=== PATIENT | male | born 1975 | race African-American/Black ===

== ENCOUNTER 2017-04-13 13:43 | Emergency (ER) | payer SELFPAY ==
[~2017-04-13] VITALS: Ht 195.6 cm; Wt 77.1 kg
[~2017-04-13 13:43] MED LIST: HYDR50TA PO; PERM60CR12 TP; PRED50TA PO; SULF1TAB24 PO
[2017-04-13 13:52] VITALS: BP 145/96
[2017-04-13] MEDS ORDERED: DOXY100C2 PO (14:28)
--- NOTE | 2017-04-13 14:28 | PHYS DOC ---
Past Medical History Past Medical History: No Pertinent History Past Surgical History: No Surgical History Additional Past Surgical Histo: LEFT KNEE REPAIR Alcohol Use: Heavy Drug Use: Marijuana Adult General Chief Complaint Chief Complaint: INSECT BITE HPI HPI Patient is a 41 year old male presents to the stating that he has a bite to the right forearm. Patient states that the areas become red and started streaking. He has not taken anything for the pain or discomfort nor is he been started on any antibiotics. Denies any drainage coming from the site. He states his tetanus immunization is approximately 1 year ago. Review of Systems Review of Systems Constitutional: Denies fever or chills [] Eyes: Denies change in visual acuity, redness, or eye pain [] HENT: Denies nasal congestion or sore throat [] Respiratory: Denies cough or shortness of breath [] Cardiovascular: No additional information not addressed in HPI [] GI: Denies abdominal pain, nausea, vomiting, bloody stools or diarrhea [] : Denies dysuria or hematuria [] Musculoskeletal: Denies back pain or joint pain [] Integument: Denies rash or skin lesions. Complaint of right forearm bite with streaking Neurologic: Denies headache, focal weakness or sensory changes [] Endocrine: Denies polyuria or polydipsia [] Allergies Allergies Allergies Coded Allergies Type Severity Reaction Last Updated Verified No Known Drug Allergies 07/09/14 No Physical Exam Physical Exam Constitutional: Well developed, well nourished, no acute distress, non-toxic appearance. [] HENT: Normocephalic, atraumatic, bilateral external ears normal, oropharynx moist, no oral exudates, nose normal. [] Eyes: PERRLA, EOMI, conjunctiva normal, no discharge. [] Neck: Normal range of motion, no tenderness, supple, no stridor. [] Cardiovascular:Heart rate regular rhythm, no murmur [] Lungs & Thorax: Bilateral breath sounds clear to auscultation [] Skin: Warm, dry, no erythema, no rash. Patient was noted to have multiple scabbed over areas on his arms bilaterally. As well as on the back of his neck. Many of these scabbed over areas appear to be over pains. Patient has an area today in which is over another vein that appears to be red swollen and streaking up the arm. No drainage or discharge coming from the site. Back: No tenderness] Extremities: No tenderness, no cyanosis, no clubbing, ROM intact, no edema. [] Neurologic: Alert and oriented X 3, normal motor function, normal sensory function, no focal deficits noted. [] Psychologic: Affect normal, judgement normal, mood normal. [] Current Patient Data Vital Signs Vital Signs Date Time Temp Pulse Resp B/P (MAP) Pulse Ox O2 Delivery O2 Flow Rate FiO2 04/13/17 13:52 98.3 93 20 100 Room Air 98.3 EKG EKG [] Radiology/Procedures Radiology/Procedures [] Course & Med Decision Making Course & Med Decision Making Pertinent Labs and Imaging studies reviewed. (See chart for details) Spoke with patient regards to keeping the area clean and dry. Clean the site with soap and water and apply antibiotic ointment to the area twice a day. Also recommended ice packs on 20 minutes off 20 minutes several times a day. He'll be placed on doxycycline with recommendations to follow-up in 3-5 days. Signs and symptoms to return back to emergency department as been provided. Patient will be discharged home in stable condition. [] Dragon Disclaimer Dragon Disclaimer This electronic medical record was generated, in whole or in part, using a voice recognition dictation system. Departure Departure Impression: Primary Impression: Cellulitis Disposition: 01 HOME, SELF-CARE Condition: STABLE Referrals: NO PCP (PCP) Patient Instructions: Cellulitis, [id number] Additional Instructions: Keep the area clean and dry. Clean the site with soap and water and apply antibiotic ointment to the area twice a day. Antibiotics as prescribed. Follow-up to primary care physician next 3-5 days. Return back to emergency prior signs symptoms of become worse. Scripts Doxycycline Hyclate (DOXYCYCLINE HYCLATE) 100 Mg Capsule 1 CAP PO BID, #20 CAP Prov: MICHELE LOVE APRN 04/13/17 MICHELE LOVE BUILDING WRECKER Apr 13, 2017 14:28
== END 2017-04-13 14:35 | disposition home or self-care (01) ==
LOC: ER 13:43
DX: L03.113 Cellulitis of right upper limb (principal); F12.10 Cannabis abuse, uncomplicated; F10.10 Alcohol abuse, uncomplicated; W57.XXXA Bitten or stung by nonvenomous insect and other nonvenomous arthropods, initial encounter; Y93.89 Activity, other specified; Y99.8 Other external cause status; Y92.89 Other specified places as the place of occurrence of the external cause
CPT/HCPCS: 99283

== ENCOUNTER 2017-04-20 13:37 | Inpatient (IN) | payer SELFPAY ==
[~2017-04-20] VITALS: Ht 195.6 cm; Wt 81.2 kg
[~2017-04-20 13:37] MED LIST changes: +DOXY100C2 PO
[2017-04-20] MEDS ORDERED: IV NORMAL SALINE 1000ML BAG 1,000 ML IV SCH (14:11)
[2017-04-20] MEDS ORDERED: ACETAMINOPHEN 325 MG TABLET. PO ONE (14:15)
[2017-04-20] MEDS ORDERED: 0.9 % SODIUM CHLORIDE 10 ML DISP.SYRIN. IV PRN (14:15)
--- NOTE | 2017-04-20 14:18 | PHYS DOC ---
Past Medical History Past Medical History: No Pertinent History Past Surgical History: No Surgical History Additional Past Surgical Histo: LEFT KNEE REPAIR Smoking: Cigarettes Alcohol Use: Heavy Drug Use: Marijuana Adult General Chief Complaint Chief Complaint: ABSCESS HPI HPI Is is a pleasant 41-year-old male with a his history and evaluation for cellulitis on his forearms bilaterally. He says that this began about a week and half ago with bug bites on his upper extremities he's had multiple issues with localized infections on his shoulders chest wall lesions for months. He says just recently they have become increasingly swollen and red and inflamed. He was seen here one week ago and placed on Bactrim for suspected cellulitis of his upper right forearm. Since that time he has developed another lesion on the left side of his neck 2 days ago that is gotten progressively worse to the point where it causes him pain to turn his head to the right and left. He has a mild headache, he also complains of low-grade fever to 1012. He's had difficulty swallowing secondary to pain with swallowing. Although he denies a change in his voice. He denies any nasal discharge or discharge from the ears. He denies any other symptoms. He is living at home with his sister. Denies exposure to IV drugs, denies exposure to amphetamines. Patient denies any history of MRSA or prior abscess formation. Pain is moderate a 7 of 10 but is tender to 10 with range of motion of the neck. He does take his medications as prescribed. In his symptoms have gotten worse. He has no primary care doctor Review of Systems Review of Systems Constitutional: Renae fevers and chills measured to 1012 Eyes: Denies change in visual acuity, redness, or eye pain [] HENT: Denies nasal congestion or sore throat [] Respiratory: Denies cough or shortness of breath [] Cardiovascular: No additional information not addressed in HPI [] GI: Denies abdominal pain, nausea, vomiting, bloody stools or diarrhea [] : Denies dysuria or hematuria [] Musculoskeletal: Denies back pain or joint pain [] Integument: Has complete a multiple skin lesions on his upper extremities and chest wall. Neurologic: One with slight headache radiating from his neck. Endocrine: Denies polyuria or polydipsia [] Current Medications Current Medications Current Medications Medications (Trade) Dose Ordered Sig/Colleen Start Time Stop Time Status Last Admin Dose Admin Acetaminophen (Tylenol) 650 mg 1X ONCE 04/20/17 14:15 04/20/17 14:16 DC 04/20/17 14:46 650 MG Fentanyl Citrate (Fentanyl 2ml Vial) 50 mcg PRN Q15MIN PRN 04/20/17 14:15 04/21/17 14:14 04/20/17 15:43 50 MCG Sodium Chloride (Normal Saline Flush) 10 ml QSHIFT PRN 04/20/17 14:15 04/20/17 14:52 10 ML Vancomycin HCl 250 ml @ 250 mls/hr 1X ONCE 04/20/17 15:45 04/20/17 16:44 Allergies Allergies Allergies Coded Allergies Type Severity Reaction Last Updated Verified No Known Drug Allergies 07/09/14 No Physical Exam Physical Exam Patient noted to be febrile fever 101.5 with mild hypertension which is long- standing likely no hypoxia noted tachypnea noted tachycardia. Constitutional: this patient is thin and cachectic with multiple lesions noted on his upper extremities in various forms of healing. Most of them are open or weeping. HENT: Normocephalic, atraumatic, bilateral external ears normal, mucous membranes with very poor dentition erosion of enamel down to the dentin., no oral exudates, nose normal. [] Eyes: PERRLA, EOMI, conjunctiva are muddy, no discharge. [] Neck: Decreased range of motion with secondary soft tissue swelling to the lateral aspect of the sternal mastoid. It is warm to touch with mild erythema there is red streaking 3-4 cm destruction from a central point of soft tissue swelling. There is no obvious changes voice. He does have decreased range of motion secondary to pain there is no obvious abscess. Cardiovascular:Heart rate regular rhythm, no murmur [] Lungs & Thorax: Bilateral breath sounds clear to auscultation [] Skin: She has multiple small lesions measuring from half a centimeter 2 cm in size in various states of healing is upper extremity is the look like self- inflicted scabs that have been picked. There is common cellulitis in multiple areas. Extremities: No tenderness, no cyanosis, no clubbing, ROM intact, no edema. She has brisk capillary refill brisk peripheral pulses. +2 Neurologic: Alert and oriented X 3, normal motor function, normal sensory function, no focal deficits noted. [] Psychologic: Affect normal, judgement normal, mood normal. [] Current Patient Data Vital Signs Vital Signs Date Time Temp Pulse Resp B/P (MAP) Pulse Ox O2 Delivery O2 Flow Rate FiO2 04/20/17 15:43 Room Air 04/20/17 14:08 101.5 78 19 148/94 (112) 98 101.5 Lab Values Laboratory Tests Test 04/20/17 14:30 White Blood Count 10.3 x10^3/uL (4.0-11.0) Red Blood Count 3.76 x10^6/uL (4.30-5.70) L Hemoglobin 12.8 g/dL (13.0-17.5) L Hematocrit 37.8 % (39.0-53.0) L Mean Corpuscular Volume 101 fL (79-100) H Mean Corpuscular Hemoglobin 34 pg (25-35) Mean Corpuscular Hemoglobin Concent 34 g/dL (31-37) Red Cell Distribution Width 12.5 % (11.5-14.5) Platelet Count 221 x10^3/uL (140-400) Neutrophils (%) (Auto) 76 % (31-73) H Lymphocytes (%) (Auto) 7 % (24-48) L Monocytes (%) (Auto) 16 % (0-9) H Eosinophils (%) (Auto) 0 % (0-3) Basophils (%) (Auto) 0 % (0-3) Neutrophils # (Auto) 7.8 x10^3uL (1.8-7.7) H Lymphocytes # (Auto) 0.7 x10^3/uL (1.0-4.8) L Monocytes # (Auto) 1.7 x10^3/uL (0.0-1.1) H Eosinophils # (Auto) 0.0 x10^3/uL (0.0-0.7) Basophils # (Auto) 0.0 x10^3/uL (0.0-0.2) Sodium Level 135 mmol/L (136-145) L Potassium Level 4.0 mmol/L (3.5-5.1) Chloride Level 95 mmol/L (98-107) L Carbon Dioxide Level 30 mmol/L (21-32) Anion Gap 10 (6-14) Blood Urea Nitrogen 8 mg/dL (8-26) Creatinine 0.9 mg/dL (0.7-1.3) Estimated GFR (Cockcroft-Gault) 112.0 BUN/Creatinine Ratio 9 (6-20) Glucose Level 124 mg/dL (70-99) H Lactic Acid Level 1.0 mmol/L (0.4-2.0) Calcium Level 8.8 mg/dL (8.5-10.1) Magnesium Level 1.8 mg/dL (1.8-2.4) Total Bilirubin 0.4 mg/dL (0.2-1.0) Direct Bilirubin 0.2 mg/dL (0.0-0.2) Aspartate Amino Transferase (AST) 35 U/L (15-37) Alanine Aminotransferase (ALT) 26 U/L (16-63) Alkaline Phosphatase 196 U/L (46-116) H Ammonia 14 mcmol/L (11-34) Total Protein 9.0 g/dL (6.4-8.2) H Albumin 3.5 g/dL (3.4-5.0) Albumin/Globulin Ratio 0.6 (1.0-1.7) L Ethyl Alcohol Level < 10 mg/dL (0-10) Laboratory Tests 04/20/17 14:30 Laboratory Tests 04/20/17 14:30 EKG EKG [] EKG read by Dr. Nelson time is now 2:21 PM 2016 demonstrates normal sinus rhythm with a heart rate of 77 patient has some T-wave inversions in V1 nonspecific T-wave inversions in non specific elevation in V2. Radiology/Procedures Radiology/Procedures [] Course & Med Decision Making Course & Med Decision Making Pertinent Labs and Imaging studies reviewed. (See chart for details) This patient presents with abscess or suspected cellulitis to the left neck or the on antibiotics. He still having fevers and chills he will require IV and about here in the emergency department and admission to the hospital given the location of the anatomical structures like possibly affected by it. Patient is refilled outpatient management being on Bactrim for 7 days without improvement. This time patient is still febrile and now has worsening symptoms on the left side of his neck. It affects his ability to swallow. Patient will have blood cultures completed lactic acid completed IV antibiotics will be given Patient will be admitted to the hospital seen on the hospitalist lineman service or work dispatcher note: Internal medicine Geophysical Support Specialist called at of the service time is now 3:40 PM Consult called back at 3:45 PM Discussed the case I presented and they agreed with admission. Time of acceptance 3:45 PM Laboratory Tests Test 04/20/17 14:30 White Blood Count 10.3 x10^3/uL (4.0-11.0) Red Blood Count 3.76 x10^6/uL (4.30-5.70) Hemoglobin 12.8 g/dL (13.0-17.5) Hematocrit 37.8 % (39.0-53.0) Mean Corpuscular Volume 101 fL (79-100) Mean Corpuscular Hemoglobin 34 pg (25-35) Mean Corpuscular Hemoglobin Concent 34 g/dL (31-37) Red Cell Distribution Width 12.5 % (11.5-14.5) Platelet Count 221 x10^3/uL (140-400) Neutrophils (%) (Auto) 76 % (31-73) Lymphocytes (%) (Auto) 7 % (24-48) Monocytes (%) (Auto) 16 % (0-9) Eosinophils (%) (Auto) 0 % (0-3) Basophils (%) (Auto) 0 % (0-3) Neutrophils # (Auto) 7.8 x10^3uL (1.8-7.7) Lymphocytes # (Auto) 0.7 x10^3/uL (1.0-4.8) Monocytes # (Auto) 1.7 x10^3/uL (0.0-1.1) Eosinophils # (Auto) 0.0 x10^3/uL (0.0-0.7) Basophils # (Auto) 0.0 x10^3/uL (0.0-0.2) Sodium Level 135 mmol/L (136-145) Chloride Level 95 mmol/L (98-107) Carbon Dioxide Level 30 mmol/L (21-32) Anion Gap 10 (6-14) Blood Urea Nitrogen 8 mg/dL (8-26) Estimated GFR (Cockcroft-Gault) 112.0 BUN/Creatinine Ratio 9 (6-20) Glucose Level 124 mg/dL (70-99) Lactic Acid Level 1.0 mmol/L (0.4-2.0) Calcium Level 8.8 mg/dL (8.5-10.1) Total Bilirubin 0.4 mg/dL (0.2-1.0) Direct Bilirubin 0.2 mg/dL (0.0-0.2) Aspartate Amino Transf (AST/SGOT) 35 U/L (15-37) Alkaline Phosphatase 196 U/L (46-116) Ammonia 14 mcmol/L (11-34) Total Protein 9.0 g/dL (6.4-8.2) Albumin 3.5 g/dL (3.4-5.0) Albumin/Globulin Ratio 0.6 (1.0-1.7) Ethyl Alcohol Level < 10 mg/dL (0-10) [] Dragon Disclaimer Dragon Disclaimer This electronic medical record was generated, in whole or in part, using a voice recognition dictation system. Departure Departure Impression: Primary Impression: Cellulitis Disposition: ADMITTED INPATIENT Condition: GUARDED Referrals: NO PCP (PCP) ROMELIA NELSON MD Apr 20, 2017 14:18
[2017-04-20 14:45] LABS: BASO % 0 % (0-3); EOS % 0 % (0-3); HEMATOCRIT 37.8 % (39.0-53.0); HEMOGLOBIN 12.8 g/dL (13.0-17.5); LYMPH # 0.7 x10^3/uL (1.0-4.8); LYMPH % 7 % (24-48); MEAN CORPUSCULAR HEMOGLOBIN 34 pg (25-35); MEAN CORPUSCULAR HGB CONC 34 g/dL (31-37); MEAN CORPUSCULAR VOLUME 101 fL (79-100); MONO % 16 % (0-9); NEUT % 76 % (31-73); PLATELET COUNT 221 x10^3/uL (140-400); RED BLOOD COUNT 3.76 x10^6/uL (4.30-5.70); RED CELL DISTRIBUTION WIDTH 12.5 % (11.5-14.5); WHITE BLOOD COUNT 10.3 x10^3/uL (4.0-11.0)
[2017-04-20] MEDS: fentaNYL PF VIAL 100 MCG/2 ML VIAL IV PRN ×3 (14:47→17:43)
[2017-04-20 15:00] LABS: CALCIUM 8.8 mg/dL (8.5-10.1); CREATININE 0.9 mg/dL (0.7-1.3)
[2017-04-20 15:04] LABS: ALBUMIN 3.5 g/dL (3.4-5.0); ALBUMIN/GLOBULIN RATIO 0.6 (1.0-1.7); DIRECT BILIRUBIN 0.2 mg/dL (0.0-0.2); MAGNESIUM 1.8 mg/dL (1.8-2.4); TOTAL BILIRUBIN 0.4 mg/dL (0.2-1.0)
--- NOTE | 2017-04-20 15:24 | RAD ---
Indication swelling. Axial images through the neck were obtained. The study is limited. IV contrast was not administered because of a history of allergy. Images were reformatted in the coronal and sagittal planes. An acute finding in the lung apices is not seen. Occasional blebs or bulla are noted. The visualized brain appears unremarkable. There is diffuse soft tissue swelling along the left neck extending to the thoracic inlet. There is significant adenopathy in the left neck which is probably reactive. A definite abscess is not seen but evaluation for abscess is somewhat limited in that no IV contrast was administered. IMPRESSION: Skin thickening along the left neck extending into the upper chest compatible with an inflammatory process such as cellulitis. Adenopathy in the left neck probably reactive. PQRS Compliance Statement: One or more of the following individualized dose reduction techniques were utilized for this examination: 1. Automated exposure control 2. Adjustment of the mA and/or kV according to patient size 3. Use of iterative reconstruction technique
[2017-04-20] MEDS ORDERED: VANCOMYCIN 1GM IVPB FOR OMNI 250 ML IV ONE (15:45)
[2017-04-20] MEDS ORDERED: ONDANSETRON PF 4 MG/2 ML VIAL. IV PRN ×2 (16:00→17:00)
[2017-04-20] MEDS ORDERED: ACETAMINOPHEN 325 MG TABLET. PO PRN ×2 (16:00→17:00)
--- NOTE | 2017-04-20 16:20 | EKG ---
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
[2017-04-20] MEDS ORDERED: DOCUSATE SODIUM 100 MG CAPSULE. PO PRN (17:00)
[2017-04-20] MEDS ORDERED: hydrALAZINE 20 MG/ML VIAL. IVP PRN (17:00)
--- NOTE | 2017-04-20 17:12 | PDOC1 ---
History and Physical Date of Admission Date of Admission 04/20/17 Identification/Chief Complaint Chief Complaint left neck pain Problems: Source Source: Chart review, Patient History of Present Illness History of Present Illness JOSTIN Gonzalez is a pleasant 41-year-old male with a his history and evaluation for left neck pain. Pt said he might got spider bitten 1 week ago, started to have bl upper and upper chest multiple open skin lesion, itchy and he scratched them. He came to ER, was given bactrium to go home. no fever, chills at home. HE STARTED TO Feel left neck pain with swollen, pain nodule 2 days ago, no skin broken or drainage. pain is 7/10. ER T 101.5. . He's had difficulty swallowing secondary to pain with swallowing. Although he denies a change in his voice. He is living at home with his sister. sister is ok. Denies exposure to IV drugs, denies exposure to amphetamines. Patient denies any history of MRSA or prior abscess formation. He does take his medications as prescribed. In his symptoms have gotten worse. He has no primary care doctor neck CK showed cellulitis wo abscess. no contrast tho. Past Medical History Past Medical History none Past Surgical History Past Surgical History knee sx Family History Family History: Hypertension Social History Smoke: <1 pack per day ALCOHOL: heavy Drugs: Marijuana Current Problem List Problem List Problems Medical Problems: (1) Cellulitis Status: Acute Current Medications Current Medications Current Medications Medications (Trade) Dose Ordered Sig/Colleen Start Time Stop Time Status Last Admin Dose Admin Acetaminophen (Tylenol) 650 mg PRN Q6HRS PRN 04/20/17 17:00 UNV Docusate Sodium (Colace) 100 mg PRN DAILY PRN 04/20/17 17:00 UNV Fentanyl Citrate (Fentanyl 2ml Vial) 50 mcg PRN Q15MIN PRN 04/20/17 14:15 04/21/17 14:14 04/20/17 15:43 50 MCG Hydralazine HCl (Apresoline) 10 mg PRN Q4HRS PRN 04/20/17 17:00 UNV Morphine Sulfate 2 mg PRN Q2HR PRN 04/20/17 17:00 UNV Ondansetron HCl (Zofran) 4 mg PRN Q6HRS PRN 04/20/17 17:00 UNV Oxycodone/ Acetaminophen (Percocet 5/325) 1 tab PRN Q6HRS PRN 04/20/17 17:00 UNV Sodium Chloride (Normal Saline Flush) 10 ml QSHIFT PRN 04/20/17 14:15 04/20/17 14:52 10 ML Tramadol HCl (Ultram) 50 mg PRN Q6HRS PRN 04/20/17 17:00 UNV Vancomycin HCl (Vanco Per Pharmacy) 1 each PRN DAILY PRN 04/20/17 17:00 UNV Vancomycin HCl 1.75 gm/Sodium Chloride 500 ml @ 250 mls/hr BID 04/21/17 08:00 UNV Allergies Allergies Allergies Coded Allergies Type Severity Reaction Last Updated Verified Iodinated Contrast- Oral and IV Dye Allergy Intermediate UNKNOWN REACTION 04/20 Yes ROS Review of System CONSTITUTIONAL: No fever or chills EYES: No recent changes SKIN: No rash or itching CARDIOVASCULAR: No chest pain, syncope, palpitations, or edema RESPIRATORY: No SOB or cough GASTROINTESTINAL: No nausea, vomiting or abdominal pain NEUROLOGICAL: No headaches or weakness ENDOCRINE: No cold or heat intolerance GENITOURINARY: No urgency or frequency of urination MUSCULOSKELETAL: No back pain or joint pain LYMPHATICS: No enlarged lymph nodes PSYCHIATRIC: No anxiety or depression Physical Exam Physical Exam GEN.: No apparent distress. Alert and oriented. HEENT: Head is normocephalic, atraumatic NECK: Supple. left neck has a 3x4cm swollen nodule, red, tenderness, mild fixed. LUNGS: Clear to auscultation. HEART: RRR, S1, S2 present. Peripheral pulses intact ABDOMEN: Soft, nontender. Positive bowel sounds. EXTREMITIES: Without any cyanosis. NEUROLOGIC: Normal speech, normal tone PSYCHIATRIC: Normal affect, normal mood. SKIN: bl upper ext and upper chest neck, scalp, multiple open skin wound, 1- 2cm, with some yellowish drainage or little bleeding. Vitals Vitals Vital Signs Date Time Temp Pulse Resp B/P (MAP) Pulse Ox O2 Delivery O2 Flow Rate FiO2 04/20/17 16:37 Room Air 04/20/17 15:45 76 148/90 (109) 100 04/20/17 14:08 101.5 19 101.5 Labs Labs Laboratory Tests Test 04/20/17 14:30 White Blood Count 10.3 x10^3/uL (4.0-11.0) Red Blood Count 3.76 x10^6/uL (4.30-5.70) Hemoglobin 12.8 g/dL (13.0-17.5) Hematocrit 37.8 % (39.0-53.0) Mean Corpuscular Volume 101 fL (79-100) Mean Corpuscular Hemoglobin 34 pg (25-35) Mean Corpuscular Hemoglobin Concent 34 g/dL (31-37) Red Cell Distribution Width 12.5 % (11.5-14.5) Platelet Count 221 x10^3/uL (140-400) Neutrophils (%) (Auto) 76 % (31-73) Lymphocytes (%) (Auto) 7 % (24-48) Monocytes (%) (Auto) 16 % (0-9) Eosinophils (%) (Auto) 0 % (0-3) Basophils (%) (Auto) 0 % (0-3) Neutrophils # (Auto) 7.8 x10^3uL (1.8-7.7) Lymphocytes # (Auto) 0.7 x10^3/uL (1.0-4.8) Monocytes # (Auto) 1.7 x10^3/uL (0.0-1.1) Eosinophils # (Auto) 0.0 x10^3/uL (0.0-0.7) Basophils # (Auto) 0.0 x10^3/uL (0.0-0.2) Sodium Level 135 mmol/L (136-145) Potassium Level 4.0 mmol/L (3.5-5.1) Chloride Level 95 mmol/L (98-107) Carbon Dioxide Level 30 mmol/L (21-32) Anion Gap 10 (6-14) Blood Urea Nitrogen 8 mg/dL (8-26) Creatinine 0.9 mg/dL (0.7-1.3) Estimated GFR (Cockcroft-Gault) 112.0 BUN/Creatinine Ratio 9 (6-20) Glucose Level 124 mg/dL (70-99) Lactic Acid Level 1.0 mmol/L (0.4-2.0) Calcium Level 8.8 mg/dL (8.5-10.1) Magnesium Level 1.8 mg/dL (1.8-2.4) Total Bilirubin 0.4 mg/dL (0.2-1.0) Direct Bilirubin 0.2 mg/dL (0.0-0.2) Aspartate Amino Transf (AST/SGOT) 35 U/L (15-37) Alanine Aminotransferase (ALT/SGPT) 26 U/L (16-63) Alkaline Phosphatase 196 U/L (46-116) Ammonia 14 mcmol/L (11-34) Total Protein 9.0 g/dL (6.4-8.2) Albumin 3.5 g/dL (3.4-5.0) Albumin/Globulin Ratio 0.6 (1.0-1.7) Ethyl Alcohol Level < 10 mg/dL (0-10) Laboratory Tests Test 04/20/17 14:30 White Blood Count 10.3 x10^3/uL (4.0-11.0) Red Blood Count 3.76 x10^6/uL (4.30-5.70) Hemoglobin 12.8 g/dL (13.0-17.5) Hematocrit 37.8 % (39.0-53.0) Mean Corpuscular Volume 101 fL (79-100) Mean Corpuscular Hemoglobin 34 pg (25-35) Mean Corpuscular Hemoglobin Concent 34 g/dL (31-37) Red Cell Distribution Width 12.5 % (11.5-14.5) Platelet Count 221 x10^3/uL (140-400) Neutrophils (%) (Auto) 76 % (31-73) Lymphocytes (%) (Auto) 7 % (24-48) Monocytes (%) (Auto) 16 % (0-9) Eosinophils (%) (Auto) 0 % (0-3) Basophils (%) (Auto) 0 % (0-3) Neutrophils # (Auto) 7.8 x10^3uL (1.8-7.7) Lymphocytes # (Auto) 0.7 x10^3/uL (1.0-4.8) Monocytes # (Auto) 1.7 x10^3/uL (0.0-1.1) Eosinophils # (Auto) 0.0 x10^3/uL (0.0-0.7) Basophils # (Auto) 0.0 x10^3/uL (0.0-0.2) Sodium Level 135 mmol/L (136-145) Potassium Level 4.0 mmol/L (3.5-5.1) Chloride Level 95 mmol/L (98-107) Carbon Dioxide Level 30 mmol/L (21-32) Anion Gap 10 (6-14) Blood Urea Nitrogen 8 mg/dL (8-26) Creatinine 0.9 mg/dL (0.7-1.3) Estimated GFR (Cockcroft-Gault) 112.0 BUN/Creatinine Ratio 9 (6-20) Glucose Level 124 mg/dL (70-99) Lactic Acid Level 1.0 mmol/L (0.4-2.0) Calcium Level 8.8 mg/dL (8.5-10.1) Magnesium Level 1.8 mg/dL (1.8-2.4) Total Bilirubin 0.4 mg/dL (0.2-1.0) Direct Bilirubin 0.2 mg/dL (0.0-0.2) Aspartate Amino Transf (AST/SGOT) 35 U/L (15-37) Alanine Aminotransferase (ALT/SGPT) 26 U/L (16-63) Alkaline Phosphatase 196 U/L (46-116) Ammonia 14 mcmol/L (11-34) Total Protein 9.0 g/dL (6.4-8.2) Albumin 3.5 g/dL (3.4-5.0) Albumin/Globulin Ratio 0.6 (1.0-1.7) Ethyl Alcohol Level < 10 mg/dL (0-10) VTE Prophylaxis Ordered VTE Prophylaxis Devices: Yes VTE Pharmacological Prophylaxi: Yes Assessment/Plan Assessment/Plan left neck cellulitis multiple small skin open wounds with superficial infection poor skin hygiene htn tobaccoism alcoholism drug abuse with marijuana to ERP, pt denies to me tho plan: ID consult vancomycin bid for now fu bcx local wound care pain control dvt ppx add lisinopril for htn ativan prn check urine drug RANDOLPH DAVIES MD Apr 20, 2017 17:12
[2017-04-20] MEDS ORDERED: VANCOMYCIN 1 GM in IV NORMAL SALINE 250ML 250 ML IV ONE (17:30)
[2017-04-20] MEDS: VANCOMYCIN PER PHARMACY MC PRN (19:19)
[2017-04-20 19:52] VITALS: BP 175/96
[2017-04-20] MEDS: oxyCODONE/APAP 5/325 1 TAB TABLET PO PRN (20:20)
[2017-04-20] MEDS: ENOXAPARIN 40 MG/0.4 ML SYRINGE. SQ SCH (20:32)
[2017-04-20 23:00] VITALS: BP 140/87
[2017-04-20] MEDS: MORPHINE SULFATE 2 MG/ML DISP.SYRIN. IV PRN (23:18)
[2017-04-20] MEDS: traMADol 50 MG TABLET PO PRN (23:18)
[2017-04-21] MEDS: oxyCODONE/APAP 5/325 1 TAB TABLET PO PRN ×4 (02:50→20:50)
[2017-04-21] MEDS: VANCOMYCIN 1.25 GM in IV NORMAL SALINE 250ML 250 ML IV SCH ×3 (02:52→18:53)
[2017-04-21 03:00] VITALS: BP 148/79
[2017-04-21] MEDS: MORPHINE SULFATE 2 MG/ML DISP.SYRIN. IV PRN ×5 (05:06→23:38)
[2017-04-21 05:08] LABS: BASO # 0.1 x10^3/uL (0.0-0.2); BASO % 1 % (0-3); EOS % 1 % (0-3); HEMATOCRIT 36.3 % (39.0-53.0); HEMOGLOBIN 12.1 g/dL (13.0-17.5); LYMPH # 0.6 x10^3/uL (1.0-4.8); LYMPH % 7 % (24-48); MEAN CORPUSCULAR HEMOGLOBIN 34 pg (25-35); MEAN CORPUSCULAR HGB CONC 33 g/dL (31-37); MEAN CORPUSCULAR VOLUME 102 fL (79-100); MONO % 13 % (0-9); NEUT % 80 % (31-73); PLATELET COUNT 212 x10^3/uL (140-400); RED BLOOD COUNT 3.58 x10^6/uL (4.30-5.70); RED CELL DISTRIBUTION WIDTH 12.3 % (11.5-14.5); WHITE BLOOD COUNT 9.9 x10^3/uL (4.0-11.0)
[2017-04-21 05:22] LABS: CALCIUM 8.1 mg/dL (8.5-10.1); CREATININE 0.9 mg/dL (0.7-1.3); POTASSIUM 3.4 mmol/L (3.5-5.1)
[2017-04-21 07:00] VITALS: BP 121/79
[2017-04-21] MEDS ORDERED: VANCOMYCIN 1.75 GM in IV NORMAL SALINE 500ML BAG 500 ML IV SCH (08:00)
[2017-04-21 11:00] VITALS: BP 103/67
--- NOTE | 2017-04-21 14:37 | PDOC ---
PROGRESS NOTES Chief Complaint Chief Complaint Chief complaint left-sided neck redness Assessment and plan Severe cellulitis of neck Hypertension Nicotine use Alcohol use Substance abuse with the TAC Multiple skin open wounds with superficial infections Plan Continue IV vancomycin, renal dosing according to renal functions Add IV Zosyn from today Infectious disease consult pending Labs and images reviewed Pain control with the [place] as needed Monitor CBC BMP in a.m. Patient continued to have some temperature spikes Ordered blood cultures if patient temperature spikes more than 100.2 As needed nicotine patch As needed Ativan for alcohol withdrawal prevention Overall prognosis guarded patient needs outpatient follow-up with primary care doctor Vitals Vitals Vital Signs Date Time Temp Pulse Resp B/P (MAP) Pulse Ox O2 Delivery O2 Flow Rate FiO2 04/21/17 11:00 99.5 70 18 103/67 (79) 100 Room Air 99.5 Physical Exam General: Alert, Oriented X3 Heart: Regular rate, Normal S1 Lungs: Clear, Wheezing Abdomen: Normal bowel sounds Extremities: No clubbing Skin: Other (redness present in the left side of the neck with multiple open wounds on the skin) Labs LABS Laboratory Tests Test 04/21/17 04:55 White Blood Count 9.9 x10^3/uL (4.0-11.0) Red Blood Count 3.58 x10^6/uL (4.30-5.70) Hemoglobin 12.1 g/dL (13.0-17.5) Hematocrit 36.3 % (39.0-53.0) Mean Corpuscular Volume 102 fL (79-100) Mean Corpuscular Hemoglobin 34 pg (25-35) Mean Corpuscular Hemoglobin Concent 33 g/dL (31-37) Red Cell Distribution Width 12.3 % (11.5-14.5) Platelet Count 212 x10^3/uL (140-400) Neutrophils (%) (Auto) 80 % (31-73) Lymphocytes (%) (Auto) 7 % (24-48) Monocytes (%) (Auto) 13 % (0-9) Eosinophils (%) (Auto) 1 % (0-3) Basophils (%) (Auto) 1 % (0-3) Neutrophils # (Auto) 7.9 x10^3uL (1.8-7.7) Lymphocytes # (Auto) 0.6 x10^3/uL (1.0-4.8) Monocytes # (Auto) 1.2 x10^3/uL (0.0-1.1) Eosinophils # (Auto) 0.1 x10^3/uL (0.0-0.7) Basophils # (Auto) 0.1 x10^3/uL (0.0-0.2) Sodium Level 136 mmol/L (136-145) Potassium Level 3.4 mmol/L (3.5-5.1) Chloride Level 99 mmol/L (98-107) Carbon Dioxide Level 30 mmol/L (21-32) Anion Gap 7 (6-14) Blood Urea Nitrogen 5 mg/dL (8-26) Creatinine 0.9 mg/dL (0.7-1.3) Estimated GFR (Cockcroft-Gault) 112.0 Glucose Level 156 mg/dL (70-99) Calcium Level 8.1 mg/dL (8.5-10.1) Assessment and Plan Assessmemt and Plan Problems Medical Problems: (1) Cellulitis Status: Acute Problems: Comment Review of Relevant I have reviewed the following items rolando (where applicable) has been applied. Labs Laboratory Tests Test 04/20/17 14:30 04/21/17 04:55 White Blood Count 10.3 x10^3/uL (4.0-11.0) 9.9 x10^3/uL (4.0-11.0) Red Blood Count 3.76 x10^6/uL (4.30-5.70) 3.58 x10^6/uL (4.30-5.70) Hemoglobin 12.8 g/dL (13.0-17.5) 12.1 g/dL (13.0-17.5) Hematocrit 37.8 % (39.0-53.0) 36.3 % (39.0-53.0) Mean Corpuscular Volume 101 fL (79-100) 102 fL (79-100) Mean Corpuscular Hemoglobin 34 pg (25-35) 34 pg (25-35) Mean Corpuscular Hemoglobin Concent 34 g/dL (31-37) 33 g/dL (31-37) Red Cell Distribution Width 12.5 % (11.5-14.5) 12.3 % (11.5-14.5) Platelet Count 221 x10^3/uL (140-400) 212 x10^3/uL (140-400) Neutrophils (%) (Auto) 76 % (31-73) 80 % (31-73) Lymphocytes (%) (Auto) 7 % (24-48) 7 % (24-48) Monocytes (%) (Auto) 16 % (0-9) 13 % (0-9) Eosinophils (%) (Auto) 0 % (0-3) 1 % (0-3) Basophils (%) (Auto) 0 % (0-3) 1 % (0-3) Neutrophils # (Auto) 7.8 x10^3uL (1.8-7.7) 7.9 x10^3uL (1.8-7.7) Lymphocytes # (Auto) 0.7 x10^3/uL (1.0-4.8) 0.6 x10^3/uL (1.0-4.8) Monocytes # (Auto) 1.7 x10^3/uL (0.0-1.1) 1.2 x10^3/uL (0.0-1.1) Eosinophils # (Auto) 0.0 x10^3/uL (0.0-0.7) 0.1 x10^3/uL (0.0-0.7) Basophils # (Auto) 0.0 x10^3/uL (0.0-0.2) 0.1 x10^3/uL (0.0-0.2) Sodium Level 135 mmol/L (136-145) 136 mmol/L (136-145) Potassium Level 4.0 mmol/L (3.5-5.1) 3.4 mmol/L (3.5-5.1) Chloride Level 95 mmol/L (98-107) 99 mmol/L (98-107) Carbon Dioxide Level 30 mmol/L (21-32) 30 mmol/L (21-32) Anion Gap 10 (6-14) 7 (6-14) Blood Urea Nitrogen 8 mg/dL (8-26) 5 mg/dL (8-26) Creatinine 0.9 mg/dL (0.7-1.3) 0.9 mg/dL (0.7-1.3) Estimated GFR (Cockcroft-Gault) 112.0 112.0 BUN/Creatinine Ratio 9 (6-20) Glucose Level 124 mg/dL (70-99) 156 mg/dL (70-99) Lactic Acid Level 1.0 mmol/L (0.4-2.0) Calcium Level 8.8 mg/dL (8.5-10.1) 8.1 mg/dL (8.5-10.1) Magnesium Level 1.8 mg/dL (1.8-2.4) Total Bilirubin 0.4 mg/dL (0.2-1.0) Direct Bilirubin 0.2 mg/dL (0.0-0.2) Aspartate Amino Transf (AST/SGOT) 35 U/L (15-37) Alanine Aminotransferase (ALT/SGPT) 26 U/L (16-63) Alkaline Phosphatase 196 U/L (46-116) Ammonia 14 mcmol/L (11-34) Total Protein 9.0 g/dL (6.4-8.2) Albumin 3.5 g/dL (3.4-5.0) Albumin/Globulin Ratio 0.6 (1.0-1.7) Ethyl Alcohol Level < 10 mg/dL (0-10) Laboratory Tests Test 04/21/17 04:55 White Blood Count 9.9 x10^3/uL (4.0-11.0) Red Blood Count 3.58 x10^6/uL (4.30-5.70) Hemoglobin 12.1 g/dL (13.0-17.5) Hematocrit 36.3 % (39.0-53.0) Mean Corpuscular Volume 102 fL (79-100) Mean Corpuscular Hemoglobin 34 pg (25-35) Mean Corpuscular Hemoglobin Concent 33 g/dL (31-37) Red Cell Distribution Width 12.3 % (11.5-14.5) Platelet Count 212 x10^3/uL (140-400) Neutrophils (%) (Auto) 80 % (31-73) Lymphocytes (%) (Auto) 7 % (24-48) Monocytes (%) (Auto) 13 % (0-9) Eosinophils (%) (Auto) 1 % (0-3) Basophils (%) (Auto) 1 % (0-3) Neutrophils # (Auto) 7.9 x10^3uL (1.8-7.7) Lymphocytes # (Auto) 0.6 x10^3/uL (1.0-4.8) Monocytes # (Auto) 1.2 x10^3/uL (0.0-1.1) Eosinophils # (Auto) 0.1 x10^3/uL (0.0-0.7) Basophils # (Auto) 0.1 x10^3/uL (0.0-0.2) Sodium Level 136 mmol/L (136-145) Potassium Level 3.4 mmol/L (3.5-5.1) Chloride Level 99 mmol/L (98-107) Carbon Dioxide Level 30 mmol/L (21-32) Anion Gap 7 (6-14) Blood Urea Nitrogen 5 mg/dL (8-26) Creatinine 0.9 mg/dL (0.7-1.3) Estimated GFR (Cockcroft-Gault) 112.0 Glucose Level 156 mg/dL (70-99) Calcium Level 8.1 mg/dL (8.5-10.1) Medications Current Medications Acetaminophen (Tylenol) 650 mg 1X ONCE PO Last administered on 04/20/17 14:46 ; Start 04/20/17 at 14:15; Stop 04/20/17 at 14:16; Status DC Fentanyl Citrate (Fentanyl 2ml Vial) 50 mcg PRN Q15MIN PRN IV PAIN GREATER THAN 3/10 Last administered on 04/20/17 17:43; Start 04/20/17 at 14:15; Stop at 14:14; Status DC Sodium Chloride 1,000 ml @ 1,000 mls/hr Q1H IV Last administered on 04/20/17 14:45; Start 04/20/17 at 14:11; Stop 04/20/17 at 15:10; Status DC Sodium Chloride (Normal Saline Flush) 10 ml QSHIFT PRN IV AFTER MEDS AND BLOOD DRAWS Last administered on 04/20/17 14:52; Start 04/20/17 at 14:15 Vancomycin HCl 250 ml @ 250 mls/hr 1X ONCE IV Last administered on 04/20/17 16:33; Start 04/20/17 at 15:45; Stop 04/20/17 at 16:44; Status DC Ondansetron HCl (Zofran) 4 mg PRN Q8HRS PRN IV NAUSEA/VOMITING; Start 04/20/17 at 16:00; Stop 04/21/17 at 15:59 Acetaminophen (Tylenol) 650 mg PRN Q4HRS PRN PO FEVER; Start 04/20/17 at 16:00 ; Stop 04/21/17 at 15:59 Acetaminophen (Tylenol) 650 mg PRN Q6HRS PRN PO FEVER; Start 04/20/17 at 17:00 Ondansetron HCl (Zofran) 4 mg PRN Q6HRS PRN IV NAUSEA/VOMITING; Start 04/20/17 at 17:00 Morphine Sulfate 2 mg PRN Q2HR PRN IV PAIN Last administered on 04/21/17 05:06 ; Start 04/20/17 at 17:00 Tramadol HCl (Ultram) 50 mg PRN Q6HRS PRN PO PAIN Last administered on 23:18; Start 04/20/17 at 17:00 Hydralazine HCl (Apresoline) 10 mg PRN Q4HRS PRN IVP ELEVATED BP, SEE COMMENTS ; Start 04/20/17 at 17:00 Docusate Sodium (Colace) 100 mg PRN DAILY PRN PO CONSTIPATION; Start 04/20/17 at 17:00 Oxycodone/ Acetaminophen (Percocet 5/325) 1 tab PRN Q6HRS PRN PO PAIN Last administered on 04/21/17 08:49; Start 04/20/17 at 17:00 Vancomycin HCl (Vanco Per Pharmacy) 1 each PRN DAILY PRN MC SEE COMMENTS Last administered on 04/20/17 19:19; Start 04/20/17 at 17:00 Vancomycin HCl 1.75 gm/Sodium Chloride 500 ml @ 250 mls/hr BID IV ; Start 04/21 at 08:00; Status UNV Vancomycin HCl 1 gm/Sodium Chloride 250 ml @ 250 mls/hr 1X ONCE IV Last administered on 04/20/17 17:38; Start 04/20/17 at 17:30; Stop 04/20/17 at 18:29 ; Status DC Lorazepam (Ativan) 2 mg PRN Q4HRS PRN IV ANXIETY / AGITATION; Start 04/20/17 at 17:15 Enoxaparin Sodium (Lovenox 40mg Syringe) 40 mg QHS SQ Last administered on 04/20 20:32; Start 04/20/17 at 21:00 Vancomycin HCl 1.25 gm/Sodium Chloride 250 ml @ 167 mls/hr Q8H IV Last administered on 04/21/17 10:12; Start 04/21/17 at 02:00 Vancomycin HCl 1 each 1X ONCE MC ; Start 04/21/17 at 17:30; Stop 04/21/17 at 17 :31 Active Scripts Active Doxycycline Hyclate 100 Mg Capsule 1 Cap PO BID Permethrin 60 Gm Cream..g. 1 Laureen TP ONCE for head lice Hydroxyzine Hcl 50 Mg Tablet 50 Mg PO TID Prednisone 50 Mg Tablet 1 Tab PO DAILY Bactrim Ds Tablet (Sulfamethoxazole/Trimethoprim) 1 Each Tablet 1 Tab PO BID Vitals/I & O Vital Sign - Last 24 Hours 04/20/17 04/20/17 04/20/17 04/20/17 14:47 15:15 15:43 15:45 Pulse 78 76 B/P (MAP) 158/89 (112) 148/90 (109) Pulse Ox 100 100 O2 Delivery Room Air Room Air Room Air 04/20/17 04/20/17 04/20/17 04/20/17 16:15 16:45 17:15 17:43 Pulse 70 80 84 B/P (MAP) 123/87 (99) 160/90 (113) 157/72 (100) Pulse Ox 99 99 99 O2 Delivery Room Air 04/20/17 04/20/17 04/20/17 04/20/17 17:45 18:15 18:44 18:45 Pulse 84 76 82 B/P (MAP) 160/85 (110) 146/78 (100) 145/76 (99) Pulse Ox 100 99 99 O2 Delivery Room Air 04/20/17 04/20/17 04/20/17 04/20/17 19:52 20:20 21:00 23:00 Temp 99.9 99.3 99.9 99.3 Pulse 80 78 Resp 18 16 18 B/P (MAP) 175/96 (122) 140/87 (104) Pulse Ox 99 98 O2 Delivery Room Air Room Air Room Air Room Air 04/20/17 04/20/17 04/21/17 04/21/17 23:18 23:18 00:20 02:50 Resp 16 16 16 16 O2 Delivery Room Air Room Air Room Air Room Air 04/21/17 04/21/17 04/21/17 04/21/17 03:00 03:50 05:06 05:40 Temp 99.5 99.5 Pulse 78 Resp 18 16 16 16 B/P (MAP) 148/79 (102) Pulse Ox 99 O2 Delivery Room Air Room Air Room Air 04/21/17 04/21/17 04/21/17 04/21/17 07:00 08:49 09:55 11:00 Temp 98.8 99.5 98.8 99.5 Pulse 68 70 Resp 18 18 B/P (MAP) 121/79 (93) 103/67 (79) Pulse Ox 98 100 O2 Delivery Room Air Room Air Room Air Room Air Intake and Output 04/20/17 04/20/17 04/21/17 15:00 23:00 07:00 Intake Total 1980 ml 1375 ml Balance 1980 ml 1375 ml CATY MONTERO MD Apr 21, 2017 14:37
[2017-04-21 15:00] VITALS: BP 131/83
[2017-04-21] MEDS: PIPERACILLIN/TAZOBACTAM 3.375 GM in IV NORMAL SALINE 50ML 50 ML IV SCH ×2 (16:08→23:38)
[2017-04-21] MEDS: VANCOMYCIN PER PHARMACY MC PRN (18:54)
[2017-04-21 19:25] VITALS: BP 111/77
[2017-04-21] MEDS ORDERED: diphenhydrAMINE 50 MG/ML VIAL IVP PRN (20:15)
[2017-04-21] MEDS ORDERED: HALOPERIDOL LACTATE 5 MG/ML VIAL. IVP PRN (20:15)
[2017-04-21] MEDS: ENOXAPARIN 40 MG/0.4 ML SYRINGE. SQ SCH (20:50)
[2017-04-21 23:20] VITALS: BP 119/79
[2017-04-21] MEDS: traMADol 50 MG TABLET PO PRN (23:37)
[2017-04-22] MEDS: VANCOMYCIN 1.25 GM in IV NORMAL SALINE 250ML 250 ML IV SCH ×3 (01:41→18:29)
[2017-04-22] MEDS: MORPHINE SULFATE 2 MG/ML DISP.SYRIN. IV PRN ×7 (01:41→23:45)
--- NOTE | 2017-04-22 01:58 | ACF ---
Admission Forms Criteria CELLULITIS Clinical Indications for Admission to Inpatient Care (Place 'X' for any and all applicable criteria): Admission is indicated for ANY ONE of the following(1)(2)(3)(4)(5): [ ]I. Limb-threatening infection [ ]II. High-risk comorbid condition as indicated by ANY ONE of the following: [ ]a) Uncontrolled diabetes (eg, HbA1c greater than 10% (0.1)) [ ]b) Cirrhosis [ ]c) Neutropenia [ ]d) Asplenia [ ]e) Immunosuppression [ ]f) Symptomatic heart failure [ ]III. Failure of outpatient therapy as indicated by ALL of the following: [ ]a) Progression or no improvement after adequate trial (minimum of 48 hours, with longer period for stable lower extremity infection) [ ]b) Adequate antibiotic regimen as indicated by use of ANY ONE of the following: [ ]i) First-generation cephalosporin (e.g., cephalexin) [ ]ii) Antistaphylococcal penicillin (e.g., dicloxacillin) [ ]iii) Penicillin-allergic patient regimen (clindamycin, extended-spectrum fluoroquinolone, or doxycycline) [ ]iv) Resistant organism (eg, methicillin-resistant Staphylococcus aureus) regimen (6) [ ]c) Outpatient intravenous therapy regimen is not appropriate due to ANY ONE of the following. (7)(8)(9)(10): [ ]i) It was tried and was not successful (eg, progression of infection). [ ]ii) It is not available or cannot be arranged in a clinically appropriate time frame (e.g., the next day). [ ]iii) Clinical presentation (eg, acuity of infection, rapidity of progression, confirmed or suspected bacteremia) is judged to require ALL of the following: [ ]1) Immediate initiation of intravenous therapy ( eg, cannot wait for next day) [ ]2) Intensity of patient monitoring and observation (eg, vital sign measurement, checks for infection progression) that cannot be provided at other than inpatient level of care [ ]IV. Mental status changes [ ]V. Bacteremia [ ]. Hemodynamic instability [ ]VII. Suspected necrotizing soft tissue infection (e.g., gas in tissue)(11)( 12) [ ]VIII. Orbital infection (13)(14) [ ]IX. Associated surgical procedure (e.g., abscess drainage, debridement) not amenable to outpatient, emergency department, or observation care [ ]X. Cutaneous gangrene [ ]XI. High fever (temperature greater than 39.5 degrees C (103.1 degrees F) (oral)) not responsive to outpatient, emergency department, or observation care therapy [X]XIII. Inpatient admission required rather than observation care (Also use Cellulitis: Observation Care as appropriate) because of ANY ONE of the following : [ ]a) Periorbital or perineal infection that is severe or worsening [X]b) Severe pain requiring acute inpatient management [ ]c) IV fluid to replace significant ongoing (e.g., for over 24 hours) losses (greater than 3L/m2 per day) [ ]d) Compartment syndrome monitoring (17) [ ]e) Strict or protective (eg, laminar flow) isolation [ ]f) Urgent debridement or skin grafting [ ]g) Bone or joint debridement [ ]h) Immediate inpatient surgery [ ]i) Other condition, treatment or monitoring requiring inpatient admission Extended stay beyond goal length of stay may be needed for (1)(18): [ ]a) Necrotizing soft tissue infection or fasciitis [ ]b) Gram-negative infection [ ]c) Methicillin-resistant Staphylococcal aureus (MRSA) infection [ ]d) Peripheral venous insufficiency with cellulitis [ ]e) Extensive edema [ ]f) Sepsis or continued Hemodynamic instability [ ]g) Continued high fever or mental status change [ ]h) Bacteremia [ ]i) Active serious comorbid conditions ( eg, heart failure, renal insufficiency) The original [facility] content created by [employer] has been revised. The portions of the content which have been revised are identified through the use of italic text or in bold, and [facility] has neither reviewed nor approved the modified material. All other unmodified content is copyright [facility] Please see references footnoted in the original [facility] edition 2016 Admission Criteria Met?: Yes SHALA WONG Apr 22, 2017 01:58
[2017-04-22 03:25] VITALS: BP 120/78
[2017-04-22] MEDS: oxyCODONE/APAP 5/325 1 TAB TABLET PO PRN ×4 (03:31→21:50)
[2017-04-22] MEDS: traMADol 50 MG TABLET PO PRN ×4 (05:20→23:45)
[2017-04-22] MEDS: PIPERACILLIN/TAZOBACTAM 3.375 GM in IV NORMAL SALINE 50ML 50 ML IV SCH ×4 (05:21→23:46)
[2017-04-22 07:00] VITALS: BP 117/80
[2017-04-22 11:00] VITALS: BP 115/71
[2017-04-22] MEDS: VANCOMYCIN PER PHARMACY MC PRN (11:21)
--- NOTE | 2017-04-22 12:47 | PDOC ---
PROGRESS NOTES Chief Complaint Chief Complaint Chief complaint left-sided neck redness Assessment and plan Severe cellulitis of neck Hypertension Nicotine use Alcohol use Substance abuse with the THC Multiple skin open wounds with superficial infections Plan Continue IV vancomycin, renal dosing according to renal functions IV Zosyn Infectious disease consult pending Labs and images reviewed Pain control with the [place] as needed Monitor CBC BMP in a.m. Patient continued to have some temperature spikes Ordered blood cultures if patient temperature spikes more than 100.2 As needed nicotine patch As needed Ativan for alcohol withdrawal prevention Overall prognosis guarded patient needs outpatient follow-up with primary care doctor Vitals Vitals Vital Signs Date Time Temp Pulse Resp B/P (MAP) Pulse Ox O2 Delivery O2 Flow Rate FiO2 04/22/17 12:15 97 Room Air 04/22/17 11:00 98.1 72 20 115/71 (86) 98.1 Physical Exam General: Alert, Oriented X3 Heart: Regular rate, Normal S1 Lungs: Clear, Wheezing Abdomen: Normal bowel sounds Extremities: No clubbing Skin: Other (redness present in the left side of the neck with multiple open wounds on the skin) Labs LABS Laboratory Tests Test 04/21/17 18:00 Vancomycin Level Trough 11.1 mcg/mL (10.0-20.0) Vancomycin Last Dose Date Vancomycin Last Dose Time 1000 Assessment and Plan Assessmemt and Plan Problems Medical Problems: (1) Cellulitis Status: Acute Problems: Comment Review of Relevant I have reviewed the following items rolando (where applicable) has been applied. Labs Laboratory Tests Test 04/20/17 14:30 04/21/17 04:55 04/21/17 18:00 White Blood Count 10.3 x10^3/uL (4.0-11.0) 9.9 x10^3/uL (4.0-11.0) Red Blood Count 3.76 x10^6/uL (4.30-5.70) 3.58 x10^6/uL (4.30-5.70) Hemoglobin 12.8 g/dL (13.0-17.5) 12.1 g/dL (13.0-17.5) Hematocrit 37.8 % (39.0-53.0) 36.3 % (39.0-53.0) Mean Corpuscular Volume 101 fL (79-100) 102 fL (79-100) Mean Corpuscular Hemoglobin 34 pg (25-35) 34 pg (25-35) Mean Corpuscular Hemoglobin Concent 34 g/dL (31-37) 33 g/dL (31-37) Red Cell Distribution Width 12.5 % (11.5-14.5) 12.3 % (11.5-14.5) Platelet Count 221 x10^3/uL (140-400) 212 x10^3/uL (140-400) Neutrophils (%) (Auto) 76 % (31-73) 80 % (31-73) Lymphocytes (%) (Auto) 7 % (24-48) 7 % (24-48) Monocytes (%) (Auto) 16 % (0-9) 13 % (0-9) Eosinophils (%) (Auto) 0 % (0-3) 1 % (0-3) Basophils (%) (Auto) 0 % (0-3) 1 % (0-3) Neutrophils # (Auto) 7.8 x10^3uL (1.8-7.7) 7.9 x10^3uL (1.8-7.7) Lymphocytes # (Auto) 0.7 x10^3/uL (1.0-4.8) 0.6 x10^3/uL (1.0-4.8) Monocytes # (Auto) 1.7 x10^3/uL (0.0-1.1) 1.2 x10^3/uL (0.0-1.1) Eosinophils # (Auto) 0.0 x10^3/uL (0.0-0.7) 0.1 x10^3/uL (0.0-0.7) Basophils # (Auto) 0.0 x10^3/uL (0.0-0.2) 0.1 x10^3/uL (0.0-0.2) Sodium Level 135 mmol/L (136-145) 136 mmol/L (136-145) Potassium Level 4.0 mmol/L (3.5-5.1) 3.4 mmol/L (3.5-5.1) Chloride Level 95 mmol/L (98-107) 99 mmol/L (98-107) Carbon Dioxide Level 30 mmol/L (21-32) 30 mmol/L (21-32) Anion Gap 10 (6-14) 7 (6-14) Blood Urea Nitrogen 8 mg/dL (8-26) 5 mg/dL (8-26) Creatinine 0.9 mg/dL (0.7-1.3) 0.9 mg/dL (0.7-1.3) Estimated GFR (Cockcroft-Gault) 112.0 112.0 BUN/Creatinine Ratio 9 (6-20) Glucose Level 124 mg/dL (70-99) 156 mg/dL (70-99) Lactic Acid Level 1.0 mmol/L (0.4-2.0) Calcium Level 8.8 mg/dL (8.5-10.1) 8.1 mg/dL (8.5-10.1) Magnesium Level 1.8 mg/dL (1.8-2.4) Total Bilirubin 0.4 mg/dL (0.2-1.0) Direct Bilirubin 0.2 mg/dL (0.0-0.2) Aspartate Amino Transf (AST/SGOT) 35 U/L (15-37) Alanine Aminotransferase (ALT/SGPT) 26 U/L (16-63) Alkaline Phosphatase 196 U/L (46-116) Ammonia 14 mcmol/L (11-34) Total Protein 9.0 g/dL (6.4-8.2) Albumin 3.5 g/dL (3.4-5.0) Albumin/Globulin Ratio 0.6 (1.0-1.7) Ethyl Alcohol Level < 10 mg/dL (0-10) Vancomycin Level Trough 11.1 mcg/mL (10.0-20.0) Vancomycin Last Dose Date Vancomycin Last Dose Time 1000 Laboratory Tests Test 04/21/17 18:00 Vancomycin Level Trough 11.1 mcg/mL (10.0-20.0) Vancomycin Last Dose Date Vancomycin Last Dose Time 1000 Microbiology 04/20/17 Blood Culture - Preliminary, Resulted NO GROWTH AFTER 1 DAY Medications Current Medications Acetaminophen (Tylenol) 650 mg 1X ONCE PO Last administered on 04/20/17t 14:46 ; Start 04/20/17 at 14:15; Stop 04/20/17 at 14:16; Status DC Fentanyl Citrate (Fentanyl 2ml Vial) 50 mcg PRN Q15MIN PRN IV PAIN GREATER THAN 3/10 Last administered on 04/20/17 17:43; Start 04/20/17 at 14:15; Stop at 14:14; Status DC Sodium Chloride 1,000 ml @ 1,000 mls/hr Q1H IV Last administered on 04/20/17 14:45; Start 04/20/17 at 14:11; Stop 04/20/17 at 15:10; Status DC Sodium Chloride (Normal Saline Flush) 10 ml QSHIFT PRN IV AFTER MEDS AND BLOOD DRAWS Last administered on 04/20/17 14:52; Start 04/20/17 at 14:15 Vancomycin HCl 250 ml @ 250 mls/hr 1X ONCE IV Last administered on 04/20/17 16:33; Start 04/20/17 at 15:45; Stop 04/20/17 at 16:44; Status DC Ondansetron HCl (Zofran) 4 mg PRN Q8HRS PRN IV NAUSEA/VOMITING; Start 04/20/17 at 16:00; Stop 04/21/17 at 15:59; Status DC Acetaminophen (Tylenol) 650 mg PRN Q4HRS PRN PO FEVER; Start 04/20/17 at 16:00 ; Stop 04/21/17 at 15:59; Status DC Acetaminophen (Tylenol) 650 mg PRN Q6HRS PRN PO FEVER; Start 04/20/17 at 17:00 Ondansetron HCl (Zofran) 4 mg PRN Q6HRS PRN IV NAUSEA/VOMITING; Start 04/20/17 at 17:00 Morphine Sulfate 2 mg PRN Q2HR PRN IV SEVERE PAIN Last administered on 11:44; Start 04/20/17 at 17:00 Tramadol HCl (Ultram) 50 mg PRN Q6HRS PRN PO MILD PAIN Last administered on 11:44; Start 04/20/17 at 17:00 Hydralazine HCl (Apresoline) 10 mg PRN Q4HRS PRN IVP ELEVATED BP, SEE COMMENTS ; Start 04/20/17 at 17:00 Docusate Sodium (Colace) 100 mg PRN DAILY PRN PO CONSTIPATION; Start 04/20/17 at 17:00 Oxycodone/ Acetaminophen (Percocet 5/325) 1 tab PRN Q6HRS PRN PO MODERATE PAIN Last administered on 04/22/17 09:32; Start 04/20/17 at 17:00 Vancomycin HCl (Vanco Per Pharmacy) 1 each PRN DAILY PRN MC SEE COMMENTS Last administered on 04/22/17 11:21; Start 04/20/17 at 17:00 Vancomycin HCl 1.75 gm/Sodium Chloride 500 ml @ 250 mls/hr BID IV ; Start 04/21 at 08:00; Status UNV Vancomycin HCl 1 gm/Sodium Chloride 250 ml @ 250 mls/hr 1X ONCE IV Last administered on 04/20/17 17:38; Start 04/20/17 at 17:30; Stop 04/20/17 at 18:29 ; Status DC Lorazepam (Ativan) 2 mg PRN Q4HRS PRN IV ANXIETY / AGITATION; Start 04/20/17 at 17:15 Enoxaparin Sodium (Lovenox 40mg Syringe) 40 mg QHS SQ Last administered on 04/21 20:50; Start 04/20/17 at 21:00 Vancomycin HCl 1.25 gm/Sodium Chloride 250 ml @ 167 mls/hr Q8H IV Last administered on 04/22/17 09:32; Start 04/21/17 at 02:00 Vancomycin HCl 1 each 1X ONCE MC Last administered on 04/21/17 17:30; Start 04/21/17 at 17:30; Stop 04/21/17 at 17:31; Status DC Piperacillin Sod/ Tazobactam Sod 3.375 gm/Sodium Chloride 50 ml @ 100 mls/hr Q6HRS IV Last administered on 04/22/17 11:44; Start 04/21/17 at 15:30 Lorazepam (Ativan) 2 mg PRN Q1HR PRN IV For CIWA 8-14; Start 04/21/17 at 20:15 Haloperidol Lactate (Haldol) 5 mg PRN Q4HRS PRN IVP Hallucinatns,Confusn, Delirium; Start 04/21/17 at 20:15 Diphenhydramine HCl (Benadryl) 25 mg PRN Q15MIN PRN IVP EPS symptoms 2'Haldol admin; Start 04/21/17 at 20:15 Active Scripts Active Doxycycline Hyclate 100 Mg Capsule 1 Cap PO BID Permethrin 60 Gm Cream..g. 1 Laureen TP ONCE for head lice Hydroxyzine Hcl 50 Mg Tablet 50 Mg PO TID Prednisone 50 Mg Tablet 1 Tab PO DAILY Bactrim Ds Tablet (Sulfamethoxazole/Trimethoprim) 1 Each Tablet 1 Tab PO BID Vitals/I & O Vital Sign - Last 24 Hours 04/21/17 04/21/17 04/21/17 04/21/17 15:00 15:15 16:08 18:54 Temp 99.9 99.9 Pulse 72 Resp 18 B/P (MAP) 131/83 (99) Pulse Ox 99 O2 Delivery Room Air Room Air Room Air Room Air 04/21/17 04/21/17 04/21/17 04/21/17 19:25 20:00 20:50 20:50 Temp 98.1 98.1 Pulse 75 Resp 20 20 20 B/P (MAP) 111/77 (88) Pulse Ox 98 98 98 O2 Delivery Room Air Room Air Room Air Room Air 04/21/17 04/21/17 04/21/17 04/22/17 23:20 23:37 23:38 01:41 Temp 98.3 98.3 Pulse 74 Resp 20 20 20 20 B/P (MAP) 119/79 (92) Pulse Ox 100 98 98 98 O2 Delivery Room Air Room Air Room Air Room Air 04/22/17 04/22/17 04/22/17 04/22/17 03:25 03:31 03:31 04:31 Temp 98.0 98.0 Pulse 81 Resp 18 20 20 20 B/P (MAP) 120/78 (92) Pulse Ox 98 98 98 O2 Delivery Room Air Room Air Room Air 04/22/17 04/22/17 04/22/17 04/22/17 05:20 05:21 05:51 06:20 Resp 20 20 20 20 Pulse Ox 98 98 98 O2 Delivery Room Air Room Air Room Air 04/22/17 04/22/17 04/22/17 04/22/17 07:00 07:45 08:31 09:32 Temp 97.5 97.5 Pulse 72 Resp 20 B/P (MAP) 117/80 (92) Pulse Ox 97 97 97 O2 Delivery Room Air Room Air Room Air Room Air 04/22/17 04/22/17 04/22/17 04/22/17 10:37 11:00 11:44 11:44 Temp 98.1 98.1 Pulse 72 Resp 20 B/P (MAP) 115/71 (86) Pulse Ox 97 97 97 97 O2 Delivery Room Air Room Air Room Air Room Air 04/22/17 12:15 Pulse Ox 97 O2 Delivery Room Air Intake and Output 04/21/17 04/21/17 04/22/17 15:00 23:00 07:00 Intake Total 0 ml Output Total 0 ml Balance 0 ml CATY MONTERO MD Apr 22, 2017 12:47
[2017-04-22 15:00] VITALS: BP 150/90
[2017-04-22 19:10] VITALS: BP 119/80
[2017-04-22] MEDS: ENOXAPARIN 40 MG/0.4 ML SYRINGE. SQ SCH (20:43)
[2017-04-22 23:00] VITALS: BP 129/78
[2017-04-23] MEDS: VANCOMYCIN 1.25 GM in IV NORMAL SALINE 250ML 250 ML IV SCH ×3 (02:10→17:42)
[2017-04-23 03:00] VITALS: BP 157/94
[2017-04-23] MEDS: oxyCODONE/APAP 5/325 1 TAB TABLET PO PRN ×3 (04:25→16:54)
[2017-04-23] MEDS: traMADol 50 MG TABLET PO PRN ×3 (06:40→18:42)
[2017-04-23] MEDS: PIPERACILLIN/TAZOBACTAM 3.375 GM in IV NORMAL SALINE 50ML 50 ML IV SCH ×3 (06:40→17:39)
[2017-04-23 07:00] VITALS: BP 115/72
[2017-04-23] MEDS: MORPHINE SULFATE 2 MG/ML DISP.SYRIN. IV PRN ×2 (09:45→21:26)
[2017-04-23] MEDS ORDERED: POTASSIUM CHLORIDE 20 MEQ TABLET.ER. PO ONE (10:30)
--- NOTE | 2017-04-23 10:32 | PDOC ---
PROGRESS NOTES Chief Complaint Chief Complaint Chief complaint left-sided neck redness Severe cellulitis of neck Hypertension Nicotine use Alcohol use Substance abuse with the THC Multiple skin open wounds with superficial infections History of Present Illness History of Present Illness Continue IV vancomycin, IV Zosyn Infectious disease consuled, not septic left side of neck grossly appears to have abcess, CT noncon was done, not good to eval abcess, will check US today may need to transfer to ENT eval, may need drainage of abcess, discussed with [place] consult at [facility] thiamine and folate PO started today for EtOH abuse Vitals Vitals Vital Signs Date Time Temp Pulse Resp B/P (MAP) Pulse Ox O2 Delivery O2 Flow Rate FiO2 04/23/17 09:45 96 Room Air 04/23/17 07:00 97.9 75 18 115/72 (86) 97.9 Physical Exam General: Alert, Oriented X3 Heart: Regular rate, Normal S1 Lungs: Clear, Wheezing Abdomen: Normal bowel sounds Extremities: No clubbing Skin: Other (redness present in the left side of the neck with multiple open wounds on the skin) Review of Systems Review of Systems dysphagia, neck pain and swelling lethargy and weakness Assessment and Plan Assessmemt and Plan Problems Medical Problems: (1) Cellulitis Status: Acute Problems: Comment Review of Relevant I have reviewed the following items rolando (where applicable) has been applied. Labs Laboratory Tests Test 04/21/17 18:00 Vancomycin Level Trough 11.1 mcg/mL (10.0-20.0) Vancomycin Last Dose Date Vancomycin Last Dose Time 1000 Microbiology 04/20/17 Blood Culture - Preliminary, Resulted NO GROWTH AFTER 2 DAYS Medications Current Medications Acetaminophen (Tylenol) 650 mg 1X ONCE PO Last administered on 04/20/17 14:46 ; Start 04/20/17 at 14:15; Stop 04/20/17 at 14:16; Status DC Fentanyl Citrate (Fentanyl 2ml Vial) 50 mcg PRN Q15MIN PRN IV PAIN GREATER THAN 3/10 Last administered on 04/20/17 17:43; Start 04/20/17 at 14:15; Stop at 14:14; Status DC Sodium Chloride 1,000 ml @ 1,000 mls/hr Q1H IV Last administered on 04/20/17 14:45; Start 04/20/17 at 14:11; Stop 04/20/17 at 15:10; Status DC Sodium Chloride (Normal Saline Flush) 10 ml QSHIFT PRN IV AFTER MEDS AND BLOOD DRAWS Last administered on 04/20/17 14:52; Start 04/20/17 at 14:15 Vancomycin HCl 250 ml @ 250 mls/hr 1X ONCE IV Last administered on 04/20/17 16:33; Start 04/20/17 at 15:45; Stop 04/20/17 at 16:44; Status DC Ondansetron HCl (Zofran) 4 mg PRN Q8HRS PRN IV NAUSEA/VOMITING; Start 04/20/17 at 16:00; Stop 04/21/17 at 15:59; Status DC Acetaminophen (Tylenol) 650 mg PRN Q4HRS PRN PO FEVER; Start 04/20/17 at 16:00 ; Stop 04/21/17 at 15:59; Status DC Acetaminophen (Tylenol) 650 mg PRN Q6HRS PRN PO FEVER Last administered on 04/22 20:43; Start 04/20/17 at 17:00 Ondansetron HCl (Zofran) 4 mg PRN Q6HRS PRN IV NAUSEA/VOMITING Last administered on 04/23/17 04:32; Start 04/20/17 at 17:00 Morphine Sulfate 2 mg PRN Q2HR PRN IV SEVERE PAIN Last administered on 09:45; Start 04/20/17 at 17:00 Tramadol HCl (Ultram) 50 mg PRN Q6HRS PRN PO MILD PAIN Last administered on 06:40; Start 04/20/17 at 17:00 Hydralazine HCl (Apresoline) 10 mg PRN Q4HRS PRN IVP ELEVATED BP, SEE COMMENTS ; Start 04/20/17 at 17:00 Docusate Sodium (Colace) 100 mg PRN DAILY PRN PO CONSTIPATION; Start 04/20/17 at 17:00 Oxycodone/ Acetaminophen (Percocet 5/325) 1 tab PRN Q6HRS PRN PO MODERATE PAIN Last administered on 04/23/17 04:25; Start 04/20/17 at 17:00 Vancomycin HCl (Vanco Per Pharmacy) 1 each PRN DAILY PRN MC SEE COMMENTS Last administered on 04/22/17 11:21; Start 04/20/17 at 17:00 Vancomycin HCl 1.75 gm/Sodium Chloride 500 ml @ 250 mls/hr BID IV ; Start 04/21 at 08:00; Status UNV Vancomycin HCl 1 gm/Sodium Chloride 250 ml @ 250 mls/hr 1X ONCE IV Last administered on 04/20/17 17:38; Start 04/20/17 at 17:30; Stop 04/20/17 at 18:29 ; Status DC Lorazepam (Ativan) 2 mg PRN Q4HRS PRN IV ANXIETY / AGITATION; Start 04/20/17 at 17:15 Enoxaparin Sodium (Lovenox 40mg Syringe) 40 mg QHS SQ Last administered on 04/22 20:43; Start 04/20/17 at 21:00 Vancomycin HCl 1.25 gm/Sodium Chloride 250 ml @ 167 mls/hr Q8H IV Last administered on 04/23/17 02:10; Start 04/21/17 at 02:00 Vancomycin HCl 1 each 1X ONCE MC Last administered on 04/21/17 17:30; Start 04/21/17 at 17:30; Stop 04/21/17 at 17:31; Status DC Piperacillin Sod/ Tazobactam Sod 3.375 gm/Sodium Chloride 50 ml @ 100 mls/hr Q6HRS IV Last administered on 04/23/17 06:40; Start 04/21/17 at 15:30 Lorazepam (Ativan) 2 mg PRN Q1HR PRN IV For CIWA 8-14; Start 04/21/17 at 20:15 Haloperidol Lactate (Haldol) 5 mg PRN Q4HRS PRN IVP Hallucinatns,Confusn, Delirium; Start 04/21/17 at 20:15 Diphenhydramine HCl (Benadryl) 25 mg PRN Q15MIN PRN IVP EPS symptoms 2'Haldol admin; Start 04/21/17 at 20:15 Potassium Chloride (Klor-Con) 20 meq 1X ONCE PO ; Start 04/23/17 at 10:30; Stop 04/23/17 at 10:31 Thiamine Mononitrate (Vitamin B-1) 100 mg DAILY PO ; Start 04/23/17 at 10:30 Vitamin B Complex (Folbic Tablet) 1 tab DAILY PO ; Start 04/23/17 at 10:30 Active Scripts Active Doxycycline Hyclate 100 Mg Capsule 1 Cap PO BID Permethrin 60 Gm Cream..g. 1 Laureen TP ONCE for head lice Hydroxyzine Hcl 50 Mg Tablet 50 Mg PO TID Prednisone 50 Mg Tablet 1 Tab PO DAILY Bactrim Ds Tablet (Sulfamethoxazole/Trimethoprim) 1 Each Tablet 1 Tab PO BID Vitals/I & O Vital Sign - Last 24 Hours 04/22/17 04/22/17 04/22/17 04/22/17 11:00 11:44 11:44 15:00 Temp 98.1 99.1 98.1 99.1 Pulse 72 82 Resp 20 20 B/P (MAP) 115/71 (86) 150/90 (110) Pulse Ox 97 97 97 97 O2 Delivery Room Air Room Air Room Air Room Air 04/22/17 04/22/17 04/22/17 04/22/17 15:41 17:43 19:10 19:50 Temp 100.8 100.8 Pulse 91 Resp 22 B/P (MAP) 119/80 (93) Pulse Ox 97 97 96 O2 Delivery Room Air Room Air Room Air Room Air 04/22/17 04/22/17 04/22/17 04/22/17 20:48 21:50 22:50 23:00 Temp 97.7 97.7 Pulse 74 Resp 18 18 20 20 B/P (MAP) 129/78 (95) Pulse Ox 96 96 97 O2 Delivery Room Air Room Air Room Air 04/22/17 04/22/17 04/23/17 04/23/17 23:45 23:45 00:15 00:58 Resp 18 18 20 20 Pulse Ox 97 97 97 97 O2 Delivery Room Air Room Air Room Air Room Air 04/23/17 04/23/17 04/23/17 04/23/17 03:00 04:25 06:42 07:00 Temp 99.1 97.9 99.1 97.9 Pulse 89 75 Resp 18 18 18 B/P (MAP) 157/94 (115) 115/72 (86) Pulse Ox 98 98 98 96 O2 Delivery Room Air Room Air Room Air Room Air 04/23/17 09:45 Pulse Ox 96 O2 Delivery Room Air Intake and Output 04/22/17 04/22/1717 15:00 23:00 07:00 Intake Total 1140 ml Balance 1140 ml HERNÁN PHAN MD Apr 23, 2017 10:32
[2017-04-23] MEDS: THIAMINE 100 MG TABLET. PO SCH (10:37)
[2017-04-23] MEDS: VITAMIN B12,B9,B6 COMPLEX 1 TABLET. PO SCH (10:37)
[2017-04-23 11:00] VITALS: BP 121/71
[2017-04-23] MEDS: VANCOMYCIN PER PHARMACY MC PRN (11:25)
--- NOTE | 2017-04-23 11:51 | RAD ---
Indication left neck swelling. Evaluate for potential abscess. Grayscale images were obtained. Note is made of a noncontrast CT examination of the neck 3 days earlier. Compatible with the findings on CT are several enlarged lymph nodes in the left neck the largest measuring approximately 1.6 cm. Some complex fluid is noted surrounding one of the enlarged lymph nodes in the neck. This is of uncertain clinical significance IMPRESSION: Adenopathy in the left neck compatible with the finding on recent CT. No dominant abscess seen
[2017-04-23 15:00] VITALS: BP 125/80
[2017-04-23 19:00] VITALS: BP 154/85
[2017-04-23] MEDS: ENOXAPARIN 40 MG/0.4 ML SYRINGE. SQ SCH (21:26)
[2017-04-23 23:00] VITALS: BP 141/80
[2017-04-24] MEDS: PIPERACILLIN/TAZOBACTAM 3.375 GM in IV NORMAL SALINE 50ML 50 ML IV SCH ×4 (00:34→16:22)
[2017-04-24] MEDS: oxyCODONE/APAP 5/325 1 TAB TABLET PO PRN ×4 (00:37→22:20)
[2017-04-24] MEDS: VANCOMYCIN 1.25 GM in IV NORMAL SALINE 250ML 250 ML IV SCH ×3 (02:09→18:39)
[2017-04-24 03:00] VITALS: BP 145/90
[2017-04-24 07:00] VITALS: BP 170/90
[2017-04-24] MEDS: VITAMIN B12,B9,B6 COMPLEX 1 TABLET. PO SCH (08:32)
[2017-04-24] MEDS: THIAMINE 100 MG TABLET. PO SCH (08:32)
--- NOTE | 2017-04-24 09:58 | PDOC ---
PROGRESS NOTES Chief Complaint Chief Complaint Chief complaint left-sided neck redness Severe cellulitis of neck Hypertension Nicotine use Alcohol use excessive Substance abuse with the THC Multiple skin open wounds with superficial infections Plan Continue current antibiotics vancomycin and Zosyn Swelling lipase to be improved redness is improved however still present Patient need outpatient the ENT services If he is asymptomatic and no fevers, and dissipated discharged tomorrow with oral antibiotics Ultrasound and CT reviewed no abscess noted Continue all calm withdrawal prevention protocol Continue current regimen for hypertension Pain control with current regimen Patient need close follow up with outpatient primary care doctor. History of Present Illness History of Present Illness Doing better feeling better, no fever, no chills, no chest pain Vitals Vitals Vital Signs Date Time Temp Pulse Resp B/P (MAP) Pulse Ox O2 Delivery O2 Flow Rate FiO2 04/24/17 08:33 99 Room Air 04/24/17 07:00 98.9 73 18 170/90 (116) 98.9 Physical Exam General: Alert, Oriented X3 Heart: Regular rate, Normal S1 Lungs: Clear, Wheezing Abdomen: Normal bowel sounds Extremities: No clubbing Skin: Other (redness present in the left side of the neck with multiple open wounds on the skin) Assessment and Plan Assessmemt and Plan Problems Medical Problems: (1) Cellulitis Status: Acute Problems: Comment Review of Relevant I have reviewed the following items rolando (where applicable) has been applied. Labs Microbiology 04/20/17 Blood Culture - Preliminary, Resulted NO GROWTH AFTER 3 DAYS Medications Current Medications Acetaminophen (Tylenol) 650 mg 1X ONCE PO Last administered on 04/20/17 14:46 ; Start 04/20/17 at 14:15; Stop 04/20/17 at 14:16; Status DC Fentanyl Citrate (Fentanyl 2ml Vial) 50 mcg PRN Q15MIN PRN IV PAIN GREATER THAN 3/10 Last administered on 04/20/17 17:43; Start 04/20/17 at 14:15; Stop at 14:14; Status DC Sodium Chloride 1,000 ml @ 1,000 mls/hr Q1H IV Last administered on 04/20/17 14:45; Start 04/20/17 at 14:11; Stop 04/20/17 at 15:10; Status DC Sodium Chloride (Normal Saline Flush) 10 ml QSHIFT PRN IV AFTER MEDS AND BLOOD DRAWS Last administered on 04/20/17 14:52; Start 04/20/17 at 14:15 Vancomycin HCl 250 ml @ 250 mls/hr 1X ONCE IV Last administered on 04/20/17 16:33; Start 04/20/17 at 15:45; Stop 04/20/17 at 16:44; Status DC Ondansetron HCl (Zofran) 4 mg PRN Q8HRS PRN IV NAUSEA/VOMITING; Start 04/20/17 at 16:00; Stop 04/21/17 at 15:59; Status DC Acetaminophen (Tylenol) 650 mg PRN Q4HRS PRN PO FEVER; Start 04/20/17 at 16:00 ; Stop 04/21/17 at 15:59; Status DC Acetaminophen (Tylenol) 650 mg PRN Q6HRS PRN PO FEVER Last administered on 04/22 20:43; Start 04/20/17 at 17:00 Ondansetron HCl (Zofran) 4 mg PRN Q6HRS PRN IV NAUSEA/VOMITING Last administered on 04/23/17 04:32; Start 04/20/17 at 17:00 Morphine Sulfate 2 mg PRN Q2HR PRN IV SEVERE PAIN Last administered on 21:26; Start 04/20/17 at 17:00 Tramadol HCl (Ultram) 50 mg PRN Q6HRS PRN PO MILD PAIN Last administered on 18:42; Start 04/20/17 at 17:00 Hydralazine HCl (Apresoline) 10 mg PRN Q4HRS PRN IVP ELEVATED BP, SEE COMMENTS ; Start 04/20/17 at 17:00 Docusate Sodium (Colace) 100 mg PRN DAILY PRN PO CONSTIPATION Last administered on 04/24/17 08:33; Start 04/20/17 at 17:00 Oxycodone/ Acetaminophen (Percocet 5/325) 1 tab PRN Q6HRS PRN PO MODERATE PAIN Last administered on 04/24/17 08:33; Start 04/20/17 at 17:00 Vancomycin HCl (Vanco Per Pharmacy) 1 each PRN DAILY PRN MC SEE COMMENTS Last administered on 04/23/17 11:25; Start 04/20/17 at 17:00 Vancomycin HCl 1.75 gm/Sodium Chloride 500 ml @ 250 mls/hr BID IV ; Start 04/21 at 08:00; Status UNV Vancomycin HCl 1 gm/Sodium Chloride 250 ml @ 250 mls/hr 1X ONCE IV Last administered on 04/20/17 17:38; Start 04/20/17 at 17:30; Stop 04/20/17 at 18:29 ; Status DC Lorazepam (Ativan) 2 mg PRN Q4HRS PRN IV ANXIETY / AGITATION; Start 04/20/17 at 17:15 Enoxaparin Sodium (Lovenox 40mg Syringe) 40 mg QHS SQ Last administered on 04/23 21:26; Start 04/20/17 at 21:00 Vancomycin HCl 1.25 gm/Sodium Chloride 250 ml @ 167 mls/hr Q8H IV Last administered on 04/24/17 02:09; Start 04/21/17 at 02:00 Vancomycin HCl 1 each 1X ONCE MC Last administered on 04/21/17 17:30; Start 04/21/17 at 17:30; Stop 04/21/17 at 17:31; Status DC Piperacillin Sod/ Tazobactam Sod 3.375 gm/Sodium Chloride 50 ml @ 100 mls/hr Q6HRS IV Last administered on 04/24/17 06:03; Start 04/21/17 at 15:30 Lorazepam (Ativan) 2 mg PRN Q1HR PRN IV For CIWA 8-14; Start 04/21/17 at 20:15 Haloperidol Lactate (Haldol) 5 mg PRN Q4HRS PRN IVP Hallucinatns,Confusn, Delirium; Start 04/21/17 at 20:15 Diphenhydramine HCl (Benadryl) 25 mg PRN Q15MIN PRN IVP EPS symptoms 2'Haldol admin; Start 04/21/17 at 20:15 Potassium Chloride (Klor-Con) 20 meq 1X ONCE PO Last administered on 10:38; Start 04/23/17 at 10:30; Stop 04/23/17 at 10:31; Status DC Thiamine Mononitrate (Vitamin B-1) 100 mg DAILY PO Last administered on 08:32; Start 04/23/17 at 10:30 Vitamin B Complex (Folbic Tablet) 1 tab DAILY PO Last administered on t 08:32; Start 04/23/17 at 10:30 Active Scripts Active Doxycycline Hyclate 100 Mg Capsule 1 Cap PO BID Permethrin 60 Gm Cream..g. 1 Laureen TP ONCE for head lice Hydroxyzine Hcl 50 Mg Tablet 50 Mg PO TID Prednisone 50 Mg Tablet 1 Tab PO DAILY Bactrim Ds Tablet (Sulfamethoxazole/Trimethoprim) 1 Each Tablet 1 Tab PO BID Vitals/I & O Vital Sign - Last 24 Hours 04/23/17 04/23/17 04/23/17 04/23/17 10:37 10:41 11:00 12:58 Temp 98.1 98.1 Pulse 68 Resp 18 B/P (MAP) 121/71 (88) Pulse Ox 96 96 99 99 O2 Delivery Room Air Room Air Room Air 04/23/17 04/23/17 04/23/17 04/23/17 14:00 15:00 16:54 18:15 Temp 98.1 98.1 Pulse 61 Resp 18 B/P (MAP) 125/80 (95) Pulse Ox 99 100 100 O2 Delivery Room Air Room Air 04/23/17 04/23/17 04/23/17 04/23/17 18:42 19:00 19:41 19:47 Temp 98.3 98.3 Pulse 64 Resp 18 16 B/P (MAP) 154/85 (108) Pulse Ox 100 98 O2 Delivery Room Air Room Air Room Air Room Air 04/23/17 04/23/17 04/23/17 04/24/17 21:26 22:09 23:00 00:37 Temp 98.6 98.6 Pulse 81 Resp 16 16 18 16 B/P (MAP) 141/80 (100) Pulse Ox 97 O2 Delivery Room Air Room Air Room Air Room Air 04/24/17 04/24/17 04/24/17 04/24/17 02:00 03:00 07:00 08:00 Temp 98.8 98.9 98.8 98.9 Pulse 66 73 Resp 16 18 18 B/P (MAP) 145/90 (108) 170/90 (116) Pulse Ox 99 97 O2 Delivery Room Air Room Air Room Air Room Air 04/24/17 08:33 Pulse Ox 99 O2 Delivery Room Air Intake and Output 04/23/17 04/23/17 04/24/17 15:00 23:00 07:00 Intake Total 480 ml Balance 480 ml CATY MONTERO MD Apr 24, 2017 09:58
[2017-04-24 11:00] VITALS: BP 152/95
[2017-04-24] MEDS: traMADol 50 MG TABLET PO PRN ×2 (11:50→19:20)
[2017-04-24] MEDS: VANCOMYCIN PER PHARMACY MC PRN ×3 (14:24→14:35)
[2017-04-24 15:00] VITALS: BP 171/86
[2017-04-24 19:00] VITALS: BP 146/95
[2017-04-24] MEDS: ENOXAPARIN 40 MG/0.4 ML SYRINGE. SQ SCH (22:20)
[2017-04-24 23:00] VITALS: BP 159/89
[2017-04-25] MEDS: PIPERACILLIN/TAZOBACTAM 3.375 GM in IV NORMAL SALINE 50ML 50 ML IV SCH ×3 (00:26→12:19)
[2017-04-25] MEDS: VANCOMYCIN 1.25 GM in IV NORMAL SALINE 250ML 250 ML IV SCH ×2 (02:36→09:49)
[2017-04-25 03:00] VITALS: BP 179/97
[2017-04-25 04:10] VITALS: BP 152/78
[2017-04-25] MEDS: oxyCODONE/APAP 5/325 1 TAB TABLET PO PRN ×2 (05:45→12:19)
[2017-04-25 07:00] VITALS: BP 148/103
[2017-04-25 07:02] VITALS: BP 142/96
[2017-04-25] MEDS: THIAMINE 100 MG TABLET. PO SCH (09:41)
[2017-04-25] MEDS: VITAMIN B12,B9,B6 COMPLEX 1 TABLET. PO SCH (09:41)
[2017-04-25] MEDS: traMADol 50 MG TABLET PO PRN (09:48)
[2017-04-25 11:00] VITALS: BP 180/94
[2017-04-25] MEDS: VANCOMYCIN PER PHARMACY MC PRN (11:06)
[2017-04-25 13:32] LABS: BASO % 1 % (0-3); EOS % 3 % (0-3); HEMOGLOBIN 11.8 g/dL (13.0-17.5); LYMPH # 0.7 x10^3/uL (1.0-4.8); LYMPH % 11 % (24-48); MEAN CORPUSCULAR HEMOGLOBIN 34 pg (25-35); MEAN CORPUSCULAR HGB CONC 34 g/dL (31-37); MEAN CORPUSCULAR VOLUME 100 fL (79-100); MONO % 21 % (0-9); NEUT % 65 % (31-73); PLATELET COUNT 259 x10^3/uL (140-400); RED CELL DISTRIBUTION WIDTH 12.4 % (11.5-14.5)
[2017-04-25 13:39] LABS: CALCIUM 9.1 mg/dL (8.5-10.1); GFR 99.2; POTASSIUM 3.6 mmol/L (3.5-5.1)
--- NOTE | 2017-04-25 14:41 | PDOC3 ---
Discharge Summary [facility] Date of Admission: Apr 21, 2017 Discharge Date: Apr 25, 2017 Admitting Diagnosis Severe cellulitis of neck Hypertension Nicotine use Alcohol use excessive Substance abuse with the THC Multiple skin open wounds with superficial infections Problems: Final Diagnosis Brief Hospital Course Is is a pleasant 41-year-old male with a his history and evaluation for left neck pain. Pt said he might got spider bitten 1 week ago, started to have bl upper and upper chest multiple open skin lesion, itchy and he scratched them. He came to ER, was given bactrium to go home. no fever, chills at home. HE STARTED TO Feel left neck pain with swollen, pain nodule 2 days ago, no skin broken or drainage. pain is 7/10. ER T 101.5. . He's had difficulty swallowing secondary to pain with swallowing. Although he denies a change in his voice. He is living at home with his sister. sister is ok. Denies exposure to IV drugs, denies exposure to amphetamines. Patient denies any history of MRSA or prior abscess formation. He does take his medications as prescribed. In his symptoms have gotten worse. He has no primary care doctor neck CK showed cellulitis wo abscess. no contrast tho. US also neg for abscess. Pt much better with vanco and zosyn iv, bcx neg. afebrile. wbc normal. dc home with doxy and keflex for another 5days. dc time 35min. General: Alert, Oriented X3 Heart: Regular rate, Normal S1 Lungs: Clear, Abdomen: Normal bowel sounds Extremities: No clubbing Skin: Other (redness present in the left side of the neck with multiple open wounds on the skin) left neck nodule better, now 2x3 cm, softer Patient History: Family history: Hypertension (situation) 33 FATHER 32 MOTHER Problems: Disposition home CONDITION AT DISCHARGE: Improved Diet regular Scheduled Doxycycline Hyclate (Doxycycline Hyclate), 1 CAP PO BID Hydroxyzine Hcl (Hydroxyzine Hcl), 50 MG PO TID Permethrin (Permethrin), 1 ATA TP ONCE Prednisone (Prednisone), 1 TAB PO DAILY Sulfamethoxazole/Trimethoprim (Bactrim Ds Tablet), 1 TAB PO BID Follow Up pcp in 2 weeks RANDOLPH DAVIES MD Apr 25, 2017 14:41
[2017-04-25] MEDS ORDERED: CEPH250C PO (14:46)
[2017-04-25] MEDS ORDERED: DOXY100T PO (14:46)
[2017-04-25] MEDS ORDERED: OXYC1TAB7 PO (14:46)
[2017-04-25 14:50] LABS: % BASOS 1 % (0-3); % EOS 2 % (0-5); PLT ESTIMATE ADEQUATE (ADEQUATE)
[2017-04-25 15:00] VITALS: BP 190/80
[2017-04-25] MEDS ORDERED: CEPHALEXIN 250 MG CAPSULE. PO SCH (15:00)
[2017-04-25] MEDS ORDERED: DOXYCYCLINE HYCLATE 100 MG TABLET PO SCH (21:00)
== END 2017-04-25 16:38 | disposition home or self-care (01) | DRG 603 ==
LOC: ER 13:37 → 4 NORTH 17:42 → OBSVTOIN 04-21 14:34
PROVIDERS: ADMIT Internal Medicine; ATTEND Internal Medicine
DX: L03.221 Cellulitis of neck (principal); F10.20 Alcohol dependence, uncomplicated; F12.10 Cannabis abuse, uncomplicated; F17.210 Nicotine dependence, cigarettes, uncomplicated; I10 Essential (primary) hypertension; T14.8 Other injury of unspecified body region; X58.XXXA Exposure to other specified factors, initial encounter; R23.4 Changes in skin texture; R13.10 Dysphagia, unspecified; Z82.49 Family history of ischemic heart disease and other diseases of the circulatory system; Z91.041 Radiographic dye allergy status; Y93.89 Activity, other specified; Y92.89 Other specified places as the place of occurrence of the external cause; Y99.8 Other external cause status
CPT/HCPCS: 36415; 70490; 76536; 80048; 80053; 80076; 80202; 82140; 83605; 83735; 85007; 85027; 87040; 93005; 96361; 96365; 96366; 96375; G0378; G0379; G0480; J1650; J2270; J2405; J2543; J3010; J3370; J7030; J7050; 99285-25

== ENCOUNTER 2017-08-26 15:45 | Inpatient (IN) | payer SELFPAY ==
[~2017-08-26] VITALS: Ht 195.6 cm; Wt 77.6 kg
[~2017-08-26 15:45] MED LIST changes: +CEPH250C PO; +DOXY100T PO; +OXYC1TAB7 PO
[2017-08-26] MEDS ORDERED: fentaNYL PF VIAL 100 MCG/2 ML VIAL IV PRN (17:15)
[2017-08-26 17:29] LABS: BASO # 0.1 x10^3/uL (0.0-0.2); BASO % 1 % (0-3); EOS % 1 % (0-3); HEMATOCRIT 35.8 % (39.0-53.0); HEMOGLOBIN 12.2 g/dL (13.0-17.5); LYMPH # 1.2 x10^3/uL (1.0-4.8); LYMPH % 10 % (24-48); MEAN CORPUSCULAR HEMOGLOBIN 34 pg (25-35); MEAN CORPUSCULAR HGB CONC 34 g/dL (31-37); MEAN CORPUSCULAR VOLUME 100 fL (79-100); MONO % 13 % (0-9); NEUT % 76 % (31-73); PLATELET COUNT 354 x10^3/uL (140-400); RED BLOOD COUNT 3.57 x10^6/uL (4.30-5.70); RED CELL DISTRIBUTION WIDTH 12.9 % (11.5-14.5); WHITE BLOOD COUNT 12.7 x10^3/uL (4.0-11.0)
[2017-08-26] MEDS ORDERED: IV NORMAL SALINE 1000ML BAG 1,000 ML IV ONE (17:30)
--- NOTE | 2017-08-26 17:49 | EKG ---
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
[2017-08-26 18:04] LABS: CALCIUM 9.3 mg/dL (8.5-10.1); CREATININE 1.3 mg/dL (0.7-1.3); GFR 72.9; POTASSIUM 4.4 mmol/L (3.5-5.1)
[2017-08-26 18:19] LABS: ALBUMIN/GLOBULIN RATIO 0.5 (1.0-1.7); MAGNESIUM 1.6 mg/dL (1.8-2.4); TOTAL BILIRUBIN 0.3 mg/dL (0.2-1.0)
--- NOTE | 2017-08-26 18:45 | ED.ADGEN ---
Past Medical History Past Medical History: Other Additional Past Medical Histor: CELLULITIS, PT POOR HISTORIAN Past Surgical History: No Surgical History Additional Past Surgical Histo: LEFT KNEE REPAIR Alcohol Use: Heavy Drug Use: Marijuana Adult General Chief Complaint Chief Complaint: FOOT INJURY PAIN HPI HPI Patient is a 42 year old man, history of homelessness, history of cellulitis with several admissions for IV antibiotics for cellular is previously, who presents emergency Department with complaint of open weeping sores and swelling of his bilateral feet. Patient also complains of a sore above his genitals about a week ago, which she states "was draining", but is now resolved. Patient states that he has been having some chills and no fevers, denies any nausea or vomiting, any focal weakness, numbness, tingling, any chest pain or shortness of breath, occasional no productive cough. Patient noted be tachycardic upon arrival to the emergency department, heart rate in the 100s, blood pressures 1 teens over 70s, patient is afebrile. He states he's been using no medications at home for pain. 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 Patient denies any other lesions, swelling, injuries, rashes or other complaints. Denies possible STDs. Review of Systems Review of Systems Constitutional: Denies fever or chills. [] Eyes: Denies change in visual acuity. [] HENT: Denies nasal congestion or sore throat. [] Respiratory: Denies cough or shortness of breath. [] Cardiovascular: Denies chest pain or edema. [] GI: Denies abdominal pain, nausea, vomiting, bloody stools or diarrhea. [] : Denies dysuria. [] Musculoskeletal: Denies back pain, complaining of pain swelling and bruising ulcerations on the dorsal aspect of both feet. Integument: Denies rash. [] Neurologic: Denies headache, focal weakness or sensory changes. [] Endocrine: Denies polyuria or polydipsia. [] Lymphatic: Denies swollen glands. [] Psychiatric: Denies depression or anxiety. [] Current Medications Current Medications Current Medications Medications (Trade) Dose Ordered Sig/Colleen Start Time Stop Time Status Last Admin Dose Admin Fentanyl Citrate (Fentanyl 2ml Vial) 25 mcg PRN Q15MIN PRN 08/26/17 17:15 08/27/17 17:14 08/26/17 17:41 25 MCG Sodium Chloride 1,000 ml @ 1,000 mls/hr 1X ONCE 08/26/17 17:30 08/26/17 18:29 DC 08/26/17 17:41 1,000 MLS/HR Allergies Allergies Allergies Coded Allergies Type Severity Reaction Last Updated Verified Iodinated Contrast- Oral and IV Dye Allergy Intermediate 04/21/17 Yes Physical Exam Physical Exam Constitutional: Well developed, well nourished, no acute distress, non-toxic appearance. [] HENT: Normocephalic, atraumatic, bilateral external ears normal, oropharynx moist, no oral exudates, nose normal. Patient with extremely poor dentition, noted to have gingival inflammation, and evidence of tooth breakdown throughout , no evidence of abscess formation induration, or mucosal edema or involvement of the oropharynx.[] Eyes: PERRLA, EOMI, conjunctiva normal, no discharge. [] Neck: Normal range of motion, no tenderness, supple, no stridor. [] Cardiovascular:Heart rate regular rhythm, no murmur , S1, S2, mildly tachycardic , no rubs or gallops.[] Lungs & Thorax: Bilateral breath sounds clear to auscultation, no wheezing, rhonchi, rales. No chest wall crepitus or tenderness. No lesions. [] Abdomen: Bowel sounds normal, soft, no rebound, rigidity, no guarding, no tenderness, no masses, no pulsatile masses. [] Skin: Warm, dry, no erythema, no rash. [] Back: No tenderness, no CVA tenderness. [] Extremities: Patient with numerous ulcerated lesions across the dorsal aspect of the foot, with with purulent drainage, swelling noted, with sloughing of skin across the dorsum and soles of the feet, no lesions identified in the soles of feet, no lesions on palms, no edema beyond this area, no evidence of significant abscess formation or induration, patient noted to have a healed lesion above the penis, without evidence of induration S formation, he states that it was "leaking pus" before, but is now dried. No other lesions, discharge or drainage noted, patient is circumcised, no cyanosis, no clubbing, ROM intact , no edema. [] Neurologic: Alert and oriented X 3, normal motor function, normal sensory function, no focal deficits noted. [] Psychologic: Affect normal, judgement normal, mood normal. [] Current Patient Data Vital Signs Vital Signs Date Time Temp Pulse Resp B/P (MAP) Pulse Ox O2 Delivery O2 Flow Rate FiO2 08/26/17 19:30 98 97 Room Air 08/26/17 18:46 181/88 (119) 08/26/17 17:41 16 08/26/17 16:40 98.3 98.3 Lab Values Laboratory Tests Test 08/26/17 17:08 08/26/17 17:20 08/26/17 17:37 White Blood Count 12.7 x10^3/uL (4.0-11.0) H Red Blood Count 3.57 x10^6/uL (4.30-5.70) L Hemoglobin 12.2 g/dL (13.0-17.5) L Hematocrit 35.8 % (39.0-53.0) L Mean Corpuscular Volume 100 fL (79-100) Mean Corpuscular Hemoglobin 34 pg (25-35) Mean Corpuscular Hemoglobin Concent 34 g/dL (31-37) Red Cell Distribution Width 12.9 % (11.5-14.5) Platelet Count 354 x10^3/uL (140-400) Neutrophils (%) (Auto) 76 % (31-73) H Lymphocytes (%) (Auto) 10 % (24-48) L Monocytes (%) (Auto) 13 % (0-9) H Eosinophils (%) (Auto) 1 % (0-3) Basophils (%) (Auto) 1 % (0-3) Neutrophils # (Auto) 9.7 x10^3uL (1.8-7.7) H Lymphocytes # (Auto) 1.2 x10^3/uL (1.0-4.8) Monocytes # (Auto) 1.6 x10^3/uL (0.0-1.1) H Eosinophils # (Auto) 0.1 x10^3/uL (0.0-0.7) Basophils # (Auto) 0.1 x10^3/uL (0.0-0.2) Sodium Level 135 mmol/L (136-145) L Potassium Level 4.4 mmol/L (3.5-5.1) Chloride Level 100 mmol/L (98-107) Carbon Dioxide Level 27 mmol/L (21-32) Anion Gap 8 (6-14) Blood Urea Nitrogen 21 mg/dL (8-26) Creatinine 1.3 mg/dL (0.7-1.3) Estimated GFR (Cockcroft-Gault) 72.9 BUN/Creatinine Ratio 16 (6-20) Glucose Level 103 mg/dL (70-99) H Calcium Level 9.3 mg/dL (8.5-10.1) Magnesium Level 1.6 mg/dL (1.8-2.4) L Total Bilirubin 0.3 mg/dL (0.2-1.0) Aspartate Amino Transferase (AST) 15 U/L (15-37) Alanine Aminotransferase (ALT) 13 U/L (16-63) L Alkaline Phosphatase 144 U/L (46-116) H Total Protein 9.0 g/dL (6.4-8.2) H Albumin 3.0 g/dL (3.4-5.0) L Albumin/Globulin Ratio 0.5 (1.0-1.7) L Ethyl Alcohol Level 66 mg/dL (0-10) H Lactic Acid Level 1.7 mmol/L (0.4-2.0) Laboratory Tests 08/26/17 17:08 Laboratory Tests 08/26/17 17:20 EKG EKG EC: Sinus rhythm, heart rate 93 bpm, left axis deviation, QTC of 418, UT of 84, QRS of 92, patient with contour abnormality noted in the anterior lateral leads, with evidence of left ventricular hypertrophy, but no significant ST elevations or depressions. Abnormal ECG, does not meet STEMI criteria. As interpreted by me.[] Radiology/Procedures Radiology/Procedures Chest x-ray: One view: Patient with evidence of hyperinflation, consistent with COPD, rule out a dose of discrete infiltrate or effusion, normal cardiac silhouette, no bony or soft tissue abnormalities identified. As interpreted by me. Bilateral foot x-ray: 6 view: No evidence of acute fracture or subluxation, no tracking air or foreign bodies identified. As interpreted by me. Course & Med Decision Making Course & Med Decision Making Pertinent Labs and Imaging studies reviewed. (See chart for details) Patient with swelling ulcerations the bilateral dorsal feet, x-rays obtained did not reveal any acutely concerning findings. Patient denies any discrete injuries, although it sounds as though he did have wet feet, into tight shoes, which may have created the irritation and ulceration. Due to the degree of swelling and infection, patient is agreeable for [place] or the hospital for IV antibiotics and wound management. Patient noted have a mild leukocytosis at 12.7 , with a mild anemia at 12.2. He states that he does drink alcohol daily, noted to have a positive alcohol at 66, denies any history of DTs or withdrawal symptoms, was placed on alcohol withdrawal protocol per his report. He is afebrile, vital signs noted for mild tachycardia, which did improve after receiving pain medication and IV fluids in the ED. Findings as above discussed with Dr. Armstrong of internal medicine, patient initiated on vancomycin in the ED , patient accepted to his service as a full admission to the medical telemetry floor for continued close monitoring due to tachycardia and concern for alcohol withdrawal, with consultation for wound management as stated on antibiotic coverage. Bridge orders entered per discussion. Patient transferred to the floor without issue. Dragon Disclaimer Dragon Disclaimer This electronic medical record was generated, in whole or in part, using a voice recognition dictation system. Departure Impression: Primary Impression: Foot ulceration Disposition: 09 ADMITTED INPATIENT Admitting Physician: Ekaterina Armstrong Condition: IMPROVED HARDY BRITTON DO Aug 26, 2017 18:45
[2017-08-26] MEDS ORDERED: VANCOMYCIN 2 GM in IV DEXTROSE 5% 500 ML IV ONE (20:30)
[2017-08-26 20:38] LABS: BILIRUBIN,URINE NEGATIVE (NEG); GLUCOSE,URINE NEGATIVE (NEG); NITRITE,URINE NEGATIVE (NEG); PH,URINE 5.5; PROTEIN,URINE 30 mg/dL (NEG-TRACE); UROBILINOGEN,URINE 0.2 mg/dL (0.2 mg/dL)
[2017-08-26 20:46] LABS: BARBITURATES NEG (NEG); BENZODIAZEPINES NEG (NEG); CANNABINOIDS POS (NEG); COCAINE POS (NEG); METHADONE NEG (NEG); OPIATES NEG (NEG); PHENCYCLIDINE NEG (NEG)
[2017-08-26 20:55] LABS: BACTERIA,URINE FEW /HPF (0-FEW); RBC,URINE >40 /HPF (0-2); SQUAMOUS EPITHELIAL CELL,UR FEW /LPF; WBC,URINE 20-40 /HPF (0-4)
[2017-08-26] MEDS: VANCOMYCIN PER PHARMACY MC PRN (21:08)
[2017-08-26] MEDS ORDERED: ACETAMINOPHEN 325 MG TABLET. PO PRN (21:30)
[2017-08-26] MEDS ORDERED: ONDANSETRON PF 4 MG/2 ML VIAL. IV PRN (21:30)
[2017-08-26 21:31] VITALS: BP 141/85
[2017-08-26 23:05] VITALS: BP 122/80
[2017-08-26] MEDS: fentaNYL PF VIAL 100 MCG/2 ML VIAL IV PRN (23:59)
[2017-08-26] MEDS: chlordiazePOXIDE HCL 25 MG CAPSULE PO SCH (23:59)
[2017-08-27] MEDS ORDERED: ZOLPIDEM 5 MG TABLET. PO PRN (00:15)
[2017-08-27 03:08] VITALS: BP 127/87
[2017-08-27 05:08] LABS: BASO # 0.1 x10^3/uL (0.0-0.2); BASO % 1 % (0-3); EOS % 1 % (0-3); HEMATOCRIT 34.5 % (39.0-53.0); HEMOGLOBIN 11.5 g/dL (13.0-17.5); LYMPH % 11 % (24-48); MEAN CORPUSCULAR HEMOGLOBIN 33 pg (25-35); MEAN CORPUSCULAR HGB CONC 33 g/dL (31-37); MEAN CORPUSCULAR VOLUME 100 fL (79-100); MONO % 18 % (0-9); NEUT % 70 % (31-73); PLATELET COUNT 284 x10^3/uL (140-400); RED BLOOD COUNT 3.46 x10^6/uL (4.30-5.70); RED CELL DISTRIBUTION WIDTH 12.8 % (11.5-14.5); WHITE BLOOD COUNT 9.7 x10^3/uL (4.0-11.0)
[2017-08-27] MEDS: chlordiazePOXIDE HCL 25 MG CAPSULE PO SCH ×4 (05:21→20:57)
[2017-08-27] MEDS: VANCOMYCIN 1.25 GM in IV DEXTROSE 5% 250 ML IV SCH ×2 (05:21→11:25)
[2017-08-27 05:49] LABS: CREATININE 1.2 mg/dL (0.7-1.3); POTASSIUM 4.3 mmol/L (3.5-5.1)
[2017-08-27 07:00] VITALS: BP 132/83
[2017-08-27] MEDS: fentaNYL PF VIAL 100 MCG/2 ML VIAL IV PRN (08:10)
[2017-08-27] MEDS ORDERED: oxyCODONE/APAP 5/325 1 TAB TABLET PO PRN (08:30)
[2017-08-27] MEDS: IV NORMAL SALINE 1000ML BAG 1,000 ML IV SCH ×2 (08:30→18:30)
[2017-08-27] MEDS ORDERED: ACETAMINOPHEN 325 MG TABLET. PO PRN (08:30)
[2017-08-27] MEDS ORDERED: ONDANSETRON PF 4 MG/2 ML VIAL. IV PRN (08:45)
[2017-08-27] MEDS ORDERED: fentaNYL PF VIAL 100 MCG/2 ML VIAL IV PRN (08:45)
--- NOTE | 2017-08-27 08:59 | RAD ---
FOOT BILAT 3V History:pain/swelling/ulceration Comparison: None Findings:3 views of the bilateral feet for a total of 6 views are submitted. No acute fracture, dislocation, radiopaque foreign body, or aggressive bone destruction is identified. Impression: 1.No acute osseous abnormality is identified by radiographs.
[2017-08-27] MEDS ORDERED: MULTIVITAMIN with MINERAL TABLET. PO SCH (09:00)
[2017-08-27] MEDS ORDERED: MULTIVIT INFUSN,ADULT 4,VIT K 10 ML, THIAMINE 100 MG, FOLIC ACID 1 MG in IV DEXTROSE 5 ... IV SCH (09:00)
--- NOTE | 2017-08-27 09:00 | RAD ---
Single view chest History:tachycardia An AP view of the chest is submitted. Comparison: None. Findings: There is no significant infiltrate, pleural effusion, or pneumothorax. The pericardial cardiac silhouette is within normal limits in size. The trachea is in the midline. No acute osseous abnormality is identified. Impression: There is no evidence of acute cardiopulmonary disease.
[2017-08-27 11:00] VITALS: BP 121/78
--- NOTE | 2017-08-27 14:07 | PDOC1 ---
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 open round lesions that are weeping, redness around, no leg swelling, he has over all poor hygiene, He has similar appearing lesions on the suprapubic area he claims may be itchy, I did ask about STDs bec I was initially concerne for SYphylis and I see ER has ordered syphylis testing, He denies any STD etc, HE was started on IV vanc TID and is SP, no PCP. NO fevers at home, WBC 12 on admit, Etoh 66, admits to drinking, non DM, ESR elevated 110 , UA has WBC 20 no sxs, Temp 100 at ER on arrival Past Medical History Cardiovascular: No pertinent hx Pulmonary: No pertinent hx GI: No pertinent hx Heme/Onc: No pertinent hx Hepatobiliary: No pertinent hx Psych: No pertinent hx Rheumatologic: No pertinent hx Infectious disease: No pertinent hx Renal/: No pertinent hx Endocrine: No pertinent hx Dermatology: No pertinent hx Past Surgical History Past Surgical History: No pertinent history Family History Family History: Hypertension, Family History Unknown Social History Smoke: No ALCOHOL: heavy Drugs: Marijuana Current Problem List Problem List Problems Medical Problems: (1) Foot ulceration Status: Acute Problems: Current Medications Current Medications Current Medications Sodium Chloride 1,000 ml @ 1,000 mls/hr 1X ONCE IV Last administered on 08/26 17:41; Start 08/26/17 at 17:30; Stop 08/26/17 at 18:29; Status DC Fentanyl Citrate (Fentanyl 2ml Vial) 25 mcg PRN Q15MIN PRN IV PAIN GREATER THAN 3/10 Last administered on 08/26/17 17:41; Start 08/26/17 at 17:15; Stop 08/27/17 at 08:41; Status DC Vancomycin HCl (Vanco Per Pharmacy) 1 each PRN DAILY PRN MC SEE COMMENTS Last administered on 08/26/17 21:08; Start 08/26/17 at 20:00 Vancomycin HCl 2 gm/Dextrose 500 ml @ 250 mls/hr 1X ONCE IV Last administered on 08/26/17 20:13; Start 08/26/17 at 20:30; Stop 08/26/17 at 22 :29; Status DC Vancomycin HCl 1.25 gm/Dextrose 250 ml @ 167 mls/hr Q8H IV Last administered on 08/27/17 11:25; Start 08/27/17 at 04:00 Vancomycin HCl 1 each 1X ONCE MC ; Start 08/27/17 at 19:30; Stop 08/27/17 at 19:31 Ondansetron HCl (Zofran) 4 mg PRN Q8HRS PRN IV NAUSEA/VOMITING; Start at 21:30; Stop 08/27/17 at 08:32; Status DC Fentanyl Citrate (Fentanyl 2ml Vial) 50 mcg PRN Q1HR PRN IV SEVERE PAIN Last administered on 08/27/17 08:10; Start 08/26/17 at 21:30; Stop 08/27/17 at 08 :32; Status DC Acetaminophen (Tylenol) 650 mg PRN Q4HRS PRN PO FEVER; Start 08/26/17 at 21:30 ; Stop 08/27/17 at 08:41; Status DC Multivitamins (Thera M Plus) 1 tab DAILY PO Last administered on 08/27/17 08: 10; Start 08/27/17 at 09:00; Stop 08/27/17 at 09:00; Status DC Chlordiazepoxide (Librium) 25 mg Q6H PO Last administered on 08/27/17 10:08; Start 08/26/17 at 22:00; Stop 08/28/17 at 04:01 Zolpidem Tartrate (Ambien) 5 mg PRN QHS PRN PO INSOMNIA, MAY REPEAT IN 1HR; Start 08/27/17 at 00:15 Fentanyl Citrate (Fentanyl 2ml Vial) 50 mcg PRN Q2HR PRN IV SEVERE PAIN; Start 08/27/17 at 08:45; Stop 08/28/17 at 08:44 Ondansetron HCl (Zofran) 4 mg PRN Q6HRS PRN IV NAUSEA/VOMITING; Start at 08:45; Stop 08/28/17 at 08:44 Multivitamins 10 ml/Thiamine HCl 100 mg/Folic Acid 1 mg/Dextrose/ Sodium Chloride 1,011.2 ml @ 100.02 mls/hr DAILY IV Last administered on 08/27/17t 10:08; Start 08/27/17 at 09:00 Sodium Chloride 1,000 ml @ 100 mls/hr Q10H IV ; Start 08/27/17 at 08:30 Oxycodone/ Acetaminophen (Percocet 5/325) 1 tab PRN Q4HRS PRN PO PAIN; Start 08/27/17 at 08:30 Oxycodone/ Acetaminophen (Percocet 10/325) 1 tab PRN Q4HRS PRN PO pain; Start 08/27/17 at 08:30 Acetaminophen (Tylenol) 650 mg PRN Q6HRS PRN PO pain; Start 08/27/17 at 08:30 Active Scripts Active No Active Prescriptions or Reported Medications Allergies Allergies: Coded Allergies: Iodinated Contrast- Oral and IV Dye (Verified Allergy, Intermediate, ) ROS Review of System as per hPI, all else 14 pt reviewed neg Physical Exam General: Alert, Oriented X3, Cooperative, No acute distress HEENT: Atraumatic, PERRLA, EOMI, Mucous membr. moist/pink Lungs: Clear to auscultation, Normal air movement Heart: S1S2, RRR, no thrills, no rubs, no gallops, no murmurs, murmurs Cardiovascular: S1, S2 Abdomen: Normal bowel sounds, Soft, No tenderness, No hepatosplenomegaly, No masses Male Genitals Exam: other (round excoriations, open lesions, weeping, itchy with some flaking on suprapubic area, no lesions on scrotum and penile area) Extremities: Other (similar lesions on both dorsal side of feet) Neuro: Normal gait, Normal speech, Strength at 5/5 X4 ext, Normal tone, Sensation intact, Cranial nerves 3-12 NL, Reflexes 2+ Psych/Mental Status: Mental status NL, Mood NL Vitals Vitals Vital Signs Date Time Temp Pulse Resp B/P (MAP) Pulse Ox O2 Delivery O2 Flow Rate FiO2 08/27/17 11:00 97.3 80 22 121/78 (92) 97 Room Air 97.3 Labs Labs Laboratory Tests Test 08/26/17 17:08 08/26/17 17:20 08/26/17 17:37 08/26/17 20:14 White Blood Count 12.7 x10^3/uL (4.0-11.0) Red Blood Count 3.57 x10^6/uL (4.30-5.70) Hemoglobin 12.2 g/dL (13.0-17.5) Hematocrit 35.8 % (39.0-53.0) Mean Corpuscular Volume 100 fL (79-100) Mean Corpuscular Hemoglobin 34 pg (25-35) Mean Corpuscular Hemoglobin Concent 34 g/dL (31-37) Red Cell Distribution Width 12.9 % (11.5-14.5) Platelet Count 354 x10^3/uL (140-400) Neutrophils (%) (Auto) 76 % (31-73) Lymphocytes (%) (Auto) 10 % (24-48) Monocytes (%) (Auto) 13 % (0-9) Eosinophils (%) (Auto) 1 % (0-3) Basophils (%) (Auto) 1 % (0-3) Neutrophils # (Auto) 9.7 x10^3uL (1.8-7.7) Lymphocytes # (Auto) 1.2 x10^3/uL (1.0-4.8) Monocytes # (Auto) 1.6 x10^3/uL (0.0-1.1) Eosinophils # (Auto) 0.1 x10^3/uL (0.0-0.7) Basophils # (Auto) 0.1 x10^3/uL (0.0-0.2) Sodium Level 135 mmol/L (136-145) Potassium Level 4.4 mmol/L (3.5-5.1) Chloride Level 100 mmol/L (98-107) Carbon Dioxide Level 27 mmol/L (21-32) Anion Gap 8 (6-14) Blood Urea Nitrogen 21 mg/dL (8-26) Creatinine 1.3 mg/dL (0.7-1.3) Estimated GFR (Cockcroft-Gault) 72.9 BUN/Creatinine Ratio 16 (6-20) Glucose Level 103 mg/dL (70-99) Calcium Level 9.3 mg/dL (8.5-10.1) Magnesium Level 1.6 mg/dL (1.8-2.4) Total Bilirubin 0.3 mg/dL (0.2-1.0) Aspartate Amino Transf (AST/SGOT) 15 U/L (15-37) Alanine Aminotransferase (ALT/SGPT) 13 U/L (16-63) Alkaline Phosphatase 144 U/L (46-116) Total Protein 9.0 g/dL (6.4-8.2) Albumin 3.0 g/dL (3.4-5.0) Albumin/Globulin Ratio 0.5 (1.0-1.7) Ethyl Alcohol Level 66 mg/dL (0-10) Lactic Acid Level 1.7 mmol/L (0.4-2.0) Urine Collection Type Unknown Urine Color Yellow Urine Clarity Clear Urine pH 5.5 Urine Specific [place] 1.020 Urine Protein 30 mg/dL (NEG-TRACE) Urine Glucose (UA) Negative mg/dL (NEG) Urine Ketones (Stick) Negative mg/dL (NEG) Urine Blood Large (NEG) Urine Nitrite Negative (NEG) Urine Bilirubin Negative (NEG) Urine Urobilinogen Dipstick 0.2 mg/dL (0.2 mg/dL) Urine Leukocyte Esterase Small (NEG) Urine RBC >40 /HPF (0-2) Urine WBC 20-40 /HPF (0-4) Urine Squamous Epithelial Cells Few /LPF Urine Bacteria Few /HPF (0-FEW) Urine Cellular Casts Occ /HPF Urine Hyaline Casts Moderate /HPF Urine Granular Casts Moderate /HPF Urine Mucus Slight /LPF Urine Opiates Screen Neg (NEG) Urine Methadone Screen Neg (NEG) Urine Barbiturates Neg (NEG) Urine Phencyclidine Screen Neg (NEG) Urine Amphetamine/Methamphetamine Neg (NEG) Urine Benzodiazepines Screen Neg (NEG) Urine Cocaine Screen Pos (NEG) Urine Cannabinoids Screen Pos (NEG) Urine Ethyl Alcohol Pos (NEG) Test 08/27/17 04:55 White Blood Count 9.7 x10^3/uL (4.0-11.0) Red Blood Count 3.46 x10^6/uL (4.30-5.70) Hemoglobin 11.5 g/dL (13.0-17.5) Hematocrit 34.5 % (39.0-53.0) Mean Corpuscular Volume 100 fL (79-100) Mean Corpuscular Hemoglobin 33 pg (25-35) Mean Corpuscular Hemoglobin Concent 33 g/dL (31-37) Red Cell Distribution Width 12.8 % (11.5-14.5) Platelet Count 284 x10^3/uL (140-400) Neutrophils (%) (Auto) 70 % (31-73) Lymphocytes (%) (Auto) 11 % (24-48) Monocytes (%) (Auto) 18 % (0-9) Eosinophils (%) (Auto) 1 % (0-3) Basophils (%) (Auto) 1 % (0-3) Neutrophils # (Auto) 6.8 x10^3uL (1.8-7.7) Lymphocytes # (Auto) 1.0 x10^3/uL (1.0-4.8) Monocytes # (Auto) 1.7 x10^3/uL (0.0-1.1) Eosinophils # (Auto) 0.1 x10^3/uL (0.0-0.7) Basophils # (Auto) 0.1 x10^3/uL (0.0-0.2) Erythrocyte Sedimentation Rate 110 (0-15) Sodium Level 137 mmol/L (136-145) Potassium Level 4.3 mmol/L (3.5-5.1) Chloride Level 103 mmol/L (98-107) Carbon Dioxide Level 26 mmol/L (21-32) Anion Gap 8 (6-14) Blood Urea Nitrogen 19 mg/dL (8-26) Creatinine 1.2 mg/dL (0.7-1.3) Estimated GFR (Cockcroft-Gault) 80.0 Glucose Level 105 mg/dL (70-99) Calcium Level 9.0 mg/dL (8.5-10.1) Laboratory Tests Test 08/26/17 17:08 08/26/17 17:20 08/26/17 17:37 08/26/17 20:14 White Blood Count 12.7 x10^3/uL (4.0-11.0) Red Blood Count 3.57 x10^6/uL (4.30-5.70) Hemoglobin 12.2 g/dL (13.0-17.5) Hematocrit 35.8 % (39.0-53.0) Mean Corpuscular Volume 100 fL (79-100) Mean Corpuscular Hemoglobin 34 pg (25-35) Mean Corpuscular Hemoglobin Concent 34 g/dL (31-37) Red Cell Distribution Width 12.9 % (11.5-14.5) Platelet Count 354 x10^3/uL (140-400) Neutrophils (%) (Auto) 76 % (31-73) Lymphocytes (%) (Auto) 10 % (24-48) Monocytes (%) (Auto) 13 % (0-9) Eosinophils (%) (Auto) 1 % (0-3) Basophils (%) (Auto) 1 % (0-3) Neutrophils # (Auto) 9.7 x10^3uL (1.8-7.7) Lymphocytes # (Auto) 1.2 x10^3/uL (1.0-4.8) Monocytes # (Auto) 1.6 x10^3/uL (0.0-1.1) Eosinophils # (Auto) 0.1 x10^3/uL (0.0-0.7) Basophils # (Auto) 0.1 x10^3/uL (0.0-0.2) Sodium Level 135 mmol/L (136-145) Potassium Level 4.4 mmol/L (3.5-5.1) Chloride Level 100 mmol/L (98-107) Carbon Dioxide Level 27 mmol/L (21-32) Anion Gap 8 (6-14) Blood Urea Nitrogen 21 mg/dL (8-26) Creatinine 1.3 mg/dL (0.7-1.3) Estimated GFR (Cockcroft-Gault) 72.9 BUN/Creatinine Ratio 16 (6-20) Glucose Level 103 mg/dL (70-99) Calcium Level 9.3 mg/dL (8.5-10.1) Magnesium Level 1.6 mg/dL (1.8-2.4) Total Bilirubin 0.3 mg/dL (0.2-1.0) Aspartate Amino Transf (AST/SGOT) 15 U/L (15-37) Alanine Aminotransferase (ALT/SGPT) 13 U/L (16-63) Alkaline Phosphatase 144 U/L (46-116) Total Protein 9.0 g/dL (6.4-8.2) Albumin 3.0 g/dL (3.4-5.0) Albumin/Globulin Ratio 0.5 (1.0-1.7) Ethyl Alcohol Level 66 mg/dL (0-10) Lactic Acid Level 1.7 mmol/L (0.4-2.0) Urine Collection Type Unknown Urine Color Yellow Urine Clarity Clear Urine pH 5.5 Urine Specific [place] 1.020 Urine Protein 30 mg/dL (NEG-TRACE) Urine Glucose (UA) Negative mg/dL (NEG) Urine Ketones (Stick) Negative mg/dL (NEG) Urine Blood Large (NEG) Urine Nitrite Negative (NEG) Urine Bilirubin Negative (NEG) Urine Urobilinogen Dipstick 0.2 mg/dL (0.2 mg/dL) Urine Leukocyte Esterase Small (NEG) Urine RBC >40 /HPF (0-2) Urine WBC 20-40 /HPF (0-4) Urine Squamous Epithelial Cells Few /LPF Urine Bacteria Few /HPF (0-FEW) Urine Cellular Casts Occ /HPF Urine Hyaline Casts Moderate /HPF Urine Granular Casts Moderate /HPF Urine Mucus Slight /LPF Urine Opiates Screen Neg (NEG) Urine Methadone Screen Neg (NEG) Urine Barbiturates Neg (NEG) Urine Phencyclidine Screen Neg (NEG) Urine Amphetamine/Methamphetamine Neg (NEG) Urine Benzodiazepines Screen Neg (NEG) Urine Cocaine Screen Pos (NEG) Urine Cannabinoids Screen Pos (NEG) Urine Ethyl Alcohol Pos (NEG) Test 08/27/17 04:55 White Blood Count 9.7 x10^3/uL (4.0-11.0) Red Blood Count 3.46 x10^6/uL (4.30-5.70) Hemoglobin 11.5 g/dL (13.0-17.5) Hematocrit 34.5 % (39.0-53.0) Mean Corpuscular Volume 100 fL (79-100) Mean Corpuscular Hemoglobin 33 pg (25-35) Mean Corpuscular Hemoglobin Concent 33 g/dL (31-37) Red Cell Distribution Width 12.8 % (11.5-14.5) Platelet Count 284 x10^3/uL (140-400) Neutrophils (%) (Auto) 70 % (31-73) Lymphocytes (%) (Auto) 11 % (24-48) Monocytes (%) (Auto) 18 % (0-9) Eosinophils (%) (Auto) 1 % (0-3) Basophils (%) (Auto) 1 % (0-3) Neutrophils # (Auto) 6.8 x10^3uL (1.8-7.7) Lymphocytes # (Auto) 1.0 x10^3/uL (1.0-4.8) Monocytes # (Auto) 1.7 x10^3/uL (0.0-1.1) Eosinophils # (Auto) 0.1 x10^3/uL (0.0-0.7) Basophils # (Auto) 0.1 x10^3/uL (0.0-0.2) Erythrocyte Sedimentation Rate 110 (0-15) Sodium Level 137 mmol/L (136-145) Potassium Level 4.3 mmol/L (3.5-5.1) Chloride Level 103 mmol/L (98-107) Carbon Dioxide Level 26 mmol/L (21-32) Anion Gap 8 (6-14) Blood Urea Nitrogen 19 mg/dL (8-26) Creatinine 1.2 mg/dL (0.7-1.3) Estimated GFR (Cockcroft-Gault) 80.0 Glucose Level 105 mg/dL (70-99) Calcium Level 9.0 mg/dL (8.5-10.1) VTE Prophylaxis Ordered VTE Prophylaxis Devices: Yes VTE Pharmacological Prophylaxi: Yes Assessment/Plan Assessment/Plan 1. Open round lesions, weeping bilateral dorsum feet and suprapubic area 2. SIRS poa,possible sepsis, no organ dysfcn 3, UTI 4. MIld to mod PCM 5. ETOH drinker PLAn: Admit 2 mN ON IV vanc TID BMP abd cbc tmr Will add cipro for uTI Wound care Consult ID Send for gram stain an dcx of the foot lesions VDRL for Sy check HIV GARRICK AYALA MD Aug 27, 2017 14:07
[2017-08-27 15:06] VITALS: BP 125/82
[2017-08-27] MEDS: CIPROFLOXACIN HCL 250 MG TABLET. PO SCH ×2 (15:22→20:52)
[2017-08-27 19:00] VITALS: BP 115/87
[2017-08-27] MEDS: oxyCODONE/APAP 10/325 1 TAB TABLET PO PRN (19:48)
[2017-08-27] MEDS: VANCOMYCIN PER PHARMACY MC PRN (20:29)
[2017-08-27] MEDS: LACTOBACILLUS RHAMNOSUS GG 1 CAPSULE. PO SCH (20:52)
[2017-08-27 23:00] VITALS: BP 133/76
[2017-08-28 02:45] VITALS: BP 128/82
[2017-08-28] MEDS: chlordiazePOXIDE HCL 25 MG CAPSULE PO SCH (03:09)
[2017-08-28] MEDS: IV NORMAL SALINE 1000ML BAG 1,000 ML IV SCH ×3 (04:30→22:26)
[2017-08-28 05:25] LABS: BASO # 0.1 x10^3/uL (0.0-0.2); BASO % 1 % (0-3); EOS % 2 % (0-3); HEMATOCRIT 33.5 % (39.0-53.0); HEMOGLOBIN 11.3 g/dL (13.0-17.5); LYMPH # 1.2 x10^3/uL (1.0-4.8); LYMPH % 17 % (24-48); MEAN CORPUSCULAR HEMOGLOBIN 34 pg (25-35); MEAN CORPUSCULAR HGB CONC 34 g/dL (31-37); MEAN CORPUSCULAR VOLUME 101 fL (79-100); MONO % 20 % (0-9); NEUT % 59 % (31-73); PLATELET COUNT 280 x10^3/uL (140-400); RED BLOOD COUNT 3.32 x10^6/uL (4.30-5.70); RED CELL DISTRIBUTION WIDTH 12.5 % (11.5-14.5); WHITE BLOOD COUNT 6.8 x10^3/uL (4.0-11.0)
[2017-08-28 05:54] LABS: ALBUMIN 2.5 g/dL (3.4-5.0); ALBUMIN/GLOBULIN RATIO 0.5 (1.0-1.7); CALCIUM 9.1 mg/dL (8.5-10.1); CREATININE 1.4 mg/dL (0.7-1.3); GFR 66.9; POTASSIUM 4.6 mmol/L (3.5-5.1); TOTAL BILIRUBIN 0.2 mg/dL (0.2-1.0)
[2017-08-28 07:00] VITALS: BP 128/82
[2017-08-28 08:06] LABS: % BASOS 1 % (0-3); % EOS 1 % (0-5)
[2017-08-28 08:07] LABS: PLT ESTIMATE ADEQUATE (ADEQUATE)
[2017-08-28] MEDS: MULTIVITAMIN with MINERAL TABLET. PO SCH (08:15)
[2017-08-28] MEDS: FOLIC ACID 1 MG TABLET. PO SCH (08:15)
[2017-08-28] MEDS: LACTOBACILLUS RHAMNOSUS GG 1 CAPSULE. PO SCH ×2 (08:15→20:15)
[2017-08-28] MEDS: oxyCODONE/APAP 10/325 1 TAB TABLET PO PRN ×3 (08:16→19:19)
[2017-08-28] MEDS: THIAMINE 100 MG TABLET. PO SCH (08:16)
[2017-08-28] MEDS: CIPROFLOXACIN HCL 250 MG TABLET. PO SCH (08:16)
[2017-08-28] MEDS ORDERED: VANCOMYCIN 1 GM in IV DEXTROSE 5% 250 ML IV SCH (09:00)
--- NOTE | 2017-08-28 10:34 | PDOC ---
PROGRESS NOTES Chief Complaint Chief Complaint 1. OPen WOUNDS, suprapubic and bilateral feet - Open round lesions, weeping bilateral dorsum feet and suprapubic area 2. SIRS poa,possible sepsis, no organ dysfcn 3, NO UTI 4. MIld to mod PCM 5. ETOH drinker 6,. 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 Over all bad hygiene - similar lesions in suprapubic area, penis and shaft and scrotum all look ok HIV ans Sy testing all pending HAd high vanc troughs yesterday - Creat now jumped to 1,.4 from normal NO upset stomach or diarrhea On cipro for uTI BUT URINE CX PRELIM IS NEG claims ambulates good PLAN: Would keep current IVF given VESTA today Since BC prelim is neg, will de escalate to rocephin BID Dc cipro - urine cx prelim is neg Patient is self pay Needs a bath Vitals Vitals Vital Signs Date Time Temp Pulse Resp B/P (MAP) Pulse Ox O2 Delivery O2 Flow Rate FiO2 08/28/17 08:16 16 100 Room Air 08/28/17 07:00 97.5 66 128/82 (97) 97.5 Physical Exam General: Alert, Oriented X3, Cooperative, No acute distress Heart: Regular rate Lungs: Clear, Wheezing Abdomen: Normal bowel sounds, Soft, No tenderness, No hepatosplenomegaly, No masses Extremities: Other (similar lesions on both dorsal side of feet) Skin: No rashes Labs LABS Laboratory Tests Test 08/27/17 19:20 08/28/17 04:40 Vancomycin Level Trough 36.5 mcg/mL (10.0-20.0) Vancomycin Last Dose Date 08/27/17 Vancomycin Last Dose Time 1200 White Blood Count 6.8 x10^3/uL (4.0-11.0) Red Blood Count 3.32 x10^6/uL (4.30-5.70) Hemoglobin 11.3 g/dL (13.0-17.5) Hematocrit 33.5 % (39.0-53.0) Mean Corpuscular Volume 101 fL (79-100) Mean Corpuscular Hemoglobin 34 pg (25-35) Mean Corpuscular Hemoglobin Concent 34 g/dL (31-37) Red Cell Distribution Width 12.5 % (11.5-14.5) Platelet Count 280 x10^3/uL (140-400) Neutrophils (%) (Auto) 59 % (31-73) Lymphocytes (%) (Auto) 17 % (24-48) Monocytes (%) (Auto) 20 % (0-9) Eosinophils (%) (Auto) 2 % (0-3) Basophils (%) (Auto) 1 % (0-3) Neutrophils # (Auto) 4.1 x10^3uL (1.8-7.7) Lymphocytes # (Auto) 1.2 x10^3/uL (1.0-4.8) Monocytes # (Auto) 1.4 x10^3/uL (0.0-1.1) Eosinophils # (Auto) 0.2 x10^3/uL (0.0-0.7) Basophils # (Auto) 0.1 x10^3/uL (0.0-0.2) Segmented Neutrophils % 56 % (35-66) Band Neutrophils % 8 % (0-9) Lymphocytes % 14 % (24-48) Monocytes % 20 % (0-10) Eosinophils % 1 % (0-5) Basophils % 1 % (0-3) Platelet Estimate Adequate (ADEQUATE) Sodium Level 138 mmol/L (136-145) Potassium Level 4.6 mmol/L (3.5-5.1) Chloride Level 102 mmol/L (98-107) Carbon Dioxide Level 30 mmol/L (21-32) Anion Gap 6 (6-14) Blood Urea Nitrogen 20 mg/dL (8-26) Creatinine 1.4 mg/dL (0.7-1.3) Estimated GFR (Cockcroft-Gault) 66.9 BUN/Creatinine Ratio 14 (6-20) Glucose Level 60 mg/dL (70-99) Calcium Level 9.1 mg/dL (8.5-10.1) Total Bilirubin 0.2 mg/dL (0.2-1.0) Aspartate Amino Transf (AST/SGOT) 14 U/L (15-37) Alanine Aminotransferase (ALT/SGPT) 11 U/L (16-63) Alkaline Phosphatase 122 U/L (46-116) Total Protein 8.0 g/dL (6.4-8.2) Albumin 2.5 g/dL (3.4-5.0) Albumin/Globulin Ratio 0.5 (1.0-1.7) Review of Systems Review of Systems no fevers, no pain, no soa, cp, etc Assessment and Plan Assessmemt and Plan Problems Medical Problems: (1) Foot ulceration Status: Acute Problems: Comment Review of Relevant I have reviewed the following items rolando (where applicable) has been applied. Labs Laboratory Tests Test 08/26/17 17:08 08/26/17 17:20 08/26/17 17:37 08/26/17 20:14 White Blood Count 12.7 x10^3/uL (4.0-11.0) Red Blood Count 3.57 x10^6/uL (4.30-5.70) Hemoglobin 12.2 g/dL (13.0-17.5) Hematocrit 35.8 % (39.0-53.0) Mean Corpuscular Volume 100 fL (79-100) Mean Corpuscular Hemoglobin 34 pg (25-35) Mean Corpuscular Hemoglobin Concent 34 g/dL (31-37) Red Cell Distribution Width 12.9 % (11.5-14.5) Platelet Count 354 x10^3/uL (140-400) Neutrophils (%) (Auto) 76 % (31-73) Lymphocytes (%) (Auto) 10 % (24-48) Monocytes (%) (Auto) 13 % (0-9) Eosinophils (%) (Auto) 1 % (0-3) Basophils (%) (Auto) 1 % (0-3) Neutrophils # (Auto) 9.7 x10^3uL (1.8-7.7) Lymphocytes # (Auto) 1.2 x10^3/uL (1.0-4.8) Monocytes # (Auto) 1.6 x10^3/uL (0.0-1.1) Eosinophils # (Auto) 0.1 x10^3/uL (0.0-0.7) Basophils # (Auto) 0.1 x10^3/uL (0.0-0.2) Sodium Level 135 mmol/L (136-145) Potassium Level 4.4 mmol/L (3.5-5.1) Chloride Level 100 mmol/L (98-107) Carbon Dioxide Level 27 mmol/L (21-32) Anion Gap 8 (6-14) Blood Urea Nitrogen 21 mg/dL (8-26) Creatinine 1.3 mg/dL (0.7-1.3) Estimated GFR (Cockcroft-Gault) 72.9 BUN/Creatinine Ratio 16 (6-20) Glucose Level 103 mg/dL (70-99) Calcium Level 9.3 mg/dL (8.5-10.1) Magnesium Level 1.6 mg/dL (1.8-2.4) Total Bilirubin 0.3 mg/dL (0.2-1.0) Aspartate Amino Transf (AST/SGOT) 15 U/L (15-37) Alanine Aminotransferase (ALT/SGPT) 13 U/L (16-63) Alkaline Phosphatase 144 U/L (46-116) Total Protein 9.0 g/dL (6.4-8.2) Albumin 3.0 g/dL (3.4-5.0) Albumin/Globulin Ratio 0.5 (1.0-1.7) Ethyl Alcohol Level 66 mg/dL (0-10) Lactic Acid Level 1.7 mmol/L (0.4-2.0) Urine Collection Type Unknown Urine Color Yellow Urine Clarity Clear Urine pH 5.5 Urine Specific [place] 1.020 Urine Protein 30 mg/dL (NEG-TRACE) Urine Glucose (UA) Negative mg/dL (NEG) Urine Ketones (Stick) Negative mg/dL (NEG) Urine Blood Large (NEG) Urine Nitrite Negative (NEG) Urine Bilirubin Negative (NEG) Urine Urobilinogen Dipstick 0.2 mg/dL (0.2 mg/dL) Urine Leukocyte Esterase Small (NEG) Urine RBC >40 /HPF (0-2) Urine WBC 20-40 /HPF (0-4) Urine Squamous Epithelial Cells Few /LPF Urine Bacteria Few /HPF (0-FEW) Urine Cellular Casts Occ /HPF Urine Hyaline Casts Moderate /HPF Urine Granular Casts Moderate /HPF Urine Mucus Slight /LPF Urine Opiates Screen Neg (NEG) Urine Methadone Screen Neg (NEG) Urine Barbiturates Neg (NEG) Urine Phencyclidine Screen Neg (NEG) Urine Amphetamine/Methamphetamine Neg (NEG) Urine Benzodiazepines Screen Neg (NEG) Urine Cocaine Screen Pos (NEG) Urine Cannabinoids Screen Pos (NEG) Urine Ethyl Alcohol Pos (NEG) Test 08/27/17 04:55 08/27/17 19:20 08/28/17 04:40 White Blood Count 9.7 x10^3/uL (4.0-11.0) 6.8 x10^3/uL (4.0-11.0) Red Blood Count 3.46 x10^6/uL (4.30-5.70) 3.32 x10^6/uL (4.30-5.70) Hemoglobin 11.5 g/dL (13.0-17.5) 11.3 g/dL (13.0-17.5) Hematocrit 34.5 % (39.0-53.0) 33.5 % (39.0-53.0) Mean Corpuscular Volume 100 fL (79-100) 101 fL (79-100) Mean Corpuscular Hemoglobin 33 pg (25-35) 34 pg (25-35) Mean Corpuscular Hemoglobin Concent 33 g/dL (31-37) 34 g/dL (31-37) Red Cell Distribution Width 12.8 % (11.5-14.5) 12.5 % (11.5-14.5) Platelet Count 284 x10^3/uL (140-400) 280 x10^3/uL (140-400) Neutrophils (%) (Auto) 70 % (31-73) 59 % (31-73) Lymphocytes (%) (Auto) 11 % (24-48) 17 % (24-48) Monocytes (%) (Auto) 18 % (0-9) 20 % (0-9) Eosinophils (%) (Auto) 1 % (0-3) 2 % (0-3) Basophils (%) (Auto) 1 % (0-3) 1 % (0-3) Neutrophils # (Auto) 6.8 x10^3uL (1.8-7.7) 4.1 x10^3uL (1.8-7.7) Lymphocytes # (Auto) 1.0 x10^3/uL (1.0-4.8) 1.2 x10^3/uL (1.0-4.8) Monocytes # (Auto) 1.7 x10^3/uL (0.0-1.1) 1.4 x10^3/uL (0.0-1.1) Eosinophils # (Auto) 0.1 x10^3/uL (0.0-0.7) 0.2 x10^3/uL (0.0-0.7) Basophils # (Auto) 0.1 x10^3/uL (0.0-0.2) 0.1 x10^3/uL (0.0-0.2) Erythrocyte Sedimentation Rate 110 (0-15) Sodium Level 137 mmol/L (136-145) 138 mmol/L (136-145) Potassium Level 4.3 mmol/L (3.5-5.1) 4.6 mmol/L (3.5-5.1) Chloride Level 103 mmol/L (98-107) 102 mmol/L (98-107) Carbon Dioxide Level 26 mmol/L (21-32) 30 mmol/L (21-32) Anion Gap 8 (6-14) 6 (6-14) Blood Urea Nitrogen 19 mg/dL (8-26) 20 mg/dL (8-26) Creatinine 1.2 mg/dL (0.7-1.3) 1.4 mg/dL (0.7-1.3) Estimated GFR (Cockcroft-Gault) 80.0 66.9 Glucose Level 105 mg/dL (70-99) 60 mg/dL (70-99) Calcium Level 9.0 mg/dL (8.5-10.1) 9.1 mg/dL (8.5-10.1) Vancomycin Level Trough 36.5 mcg/mL (10.0-20.0) Vancomycin Last Dose Date 08/27/17 Vancomycin Last Dose Time 1200 Segmented Neutrophils % 56 % (35-66) Band Neutrophils % 8 % (0-9) Lymphocytes % 14 % (24-48) Monocytes % 20 % (0-10) Eosinophils % 1 % (0-5) Basophils % 1 % (0-3) Platelet Estimate Adequate (ADEQUATE) BUN/Creatinine Ratio 14 (6-20) Total Bilirubin 0.2 mg/dL (0.2-1.0) Aspartate Amino Transf (AST/SGOT) 14 U/L (15-37) Alanine Aminotransferase (ALT/SGPT) 11 U/L (16-63) Alkaline Phosphatase 122 U/L (46-116) Total Protein 8.0 g/dL (6.4-8.2) Albumin 2.5 g/dL (3.4-5.0) Albumin/Globulin Ratio 0.5 (1.0-1.7) Laboratory Tests Test 08/27/17 19:20 08/28/17 04:40 Vancomycin Level Trough 36.5 mcg/mL (10.0-20.0) Vancomycin Last Dose Date 08/27/17 Vancomycin Last Dose Time 1200 White Blood Count 6.8 x10^3/uL (4.0-11.0) Red Blood Count 3.32 x10^6/uL (4.30-5.70) Hemoglobin 11.3 g/dL (13.0-17.5) Hematocrit 33.5 % (39.0-53.0) Mean Corpuscular Volume 101 fL (79-100) Mean Corpuscular Hemoglobin 34 pg (25-35) Mean Corpuscular Hemoglobin Concent 34 g/dL (31-37) Red Cell Distribution Width 12.5 % (11.5-14.5) Platelet Count 280 x10^3/uL (140-400) Neutrophils (%) (Auto) 59 % (31-73) Lymphocytes (%) (Auto) 17 % (24-48) Monocytes (%) (Auto) 20 % (0-9) Eosinophils (%) (Auto) 2 % (0-3) Basophils (%) (Auto) 1 % (0-3) Neutrophils # (Auto) 4.1 x10^3uL (1.8-7.7) Lymphocytes # (Auto) 1.2 x10^3/uL (1.0-4.8) Monocytes # (Auto) 1.4 x10^3/uL (0.0-1.1) Eosinophils # (Auto) 0.2 x10^3/uL (0.0-0.7) Basophils # (Auto) 0.1 x10^3/uL (0.0-0.2) Segmented Neutrophils % 56 % (35-66) Band Neutrophils % 8 % (0-9) Lymphocytes % 14 % (24-48) Monocytes % 20 % (0-10) Eosinophils % 1 % (0-5) Basophils % 1 % (0-3) Platelet Estimate Adequate (ADEQUATE) Sodium Level 138 mmol/L (136-145) Potassium Level 4.6 mmol/L (3.5-5.1) Chloride Level 102 mmol/L (98-107) Carbon Dioxide Level 30 mmol/L (21-32) Anion Gap 6 (6-14) Blood Urea Nitrogen 20 mg/dL (8-26) Creatinine 1.4 mg/dL (0.7-1.3) Estimated GFR (Cockcroft-Gault) 66.9 BUN/Creatinine Ratio 14 (6-20) Glucose Level 60 mg/dL (70-99) Calcium Level 9.1 mg/dL (8.5-10.1) Total Bilirubin 0.2 mg/dL (0.2-1.0) Aspartate Amino Transf (AST/SGOT) 14 U/L (15-37) Alanine Aminotransferase (ALT/SGPT) 11 U/L (16-63) Alkaline Phosphatase 122 U/L (46-116) Total Protein 8.0 g/dL (6.4-8.2) Albumin 2.5 g/dL (3.4-5.0) Albumin/Globulin Ratio 0.5 (1.0-1.7) Microbiology 08/26/17 Blood Culture - Preliminary, Resulted NO GROWTH AFTER 1 DAY 08/26/17 Urine Culture - Preliminary, Resulted 08/26/17 Urine Culture Result 1 (HEMANTH) - Preliminary, Resulted Medications Current Medications Sodium Chloride 1,000 ml @ 1,000 mls/hr 1X ONCE IV Last administered on 08/26 17:41; Start 08/26/17 at 17:30; Stop 08/26/17 at 18:29; Status DC Fentanyl Citrate (Fentanyl 2ml Vial) 25 mcg PRN Q15MIN PRN IV PAIN GREATER THAN 3/10 Last administered on 08/26/17 17:41; Start 08/26/17 at 17:15; Stop 08/27/17 at 08:41; Status DC Vancomycin HCl (Vanco Per Pharmacy) 1 each PRN DAILY PRN MC SEE COMMENTS Last administered on 08/27/17 20:29; Start 08/26/17 at 20:00 Vancomycin HCl 2 gm/Dextrose 500 ml @ 250 mls/hr 1X ONCE IV Last administered on 08/26/17 20:13; Start 08/26/17 at 20:30; Stop 08/26/17 at 22 :29; Status DC Vancomycin HCl 1.25 gm/Dextrose 250 ml @ 167 mls/hr Q8H IV Last administered on 08/27/17 11:25; Start 08/27/17 at 04:00; Stop 08/27/17 at 20:16; Status DC Vancomycin HCl 1 each 1X ONCE MC Last administered on 08/27/17 19:30; Start 08/27/17 at 19:30; Stop 08/27/17 at 19:31; Status DC Ondansetron HCl (Zofran) 4 mg PRN Q8HRS PRN IV NAUSEA/VOMITING; Start at 21:30; Stop 08/27/17 at 08:32; Status DC Fentanyl Citrate (Fentanyl 2ml Vial) 50 mcg PRN Q1HR PRN IV SEVERE PAIN Last administered on 08/27/17 08:10; Start 08/26/17 at 21:30; Stop 08/27/17 at 08 :32; Status DC Acetaminophen (Tylenol) 650 mg PRN Q4HRS PRN PO FEVER; Start 08/26/17 at 21:30 ; Stop 08/27/17 at 08:41; Status DC Multivitamins (Thera M Plus) 1 tab DAILY PO Last administered on 08/27/17 08: 10; Start 08/27/17 at 09:00; Stop 08/27/17 at 09:00; Status DC Chlordiazepoxide (Librium) 25 mg Q6H PO Last administered on 08/28/17 03:09; Start 08/26/17 at 22:00; Stop 08/28/17 at 04:01; Status DC Zolpidem Tartrate (Ambien) 5 mg PRN QHS PRN PO INSOMNIA, MAY REPEAT IN 1HR; Start 08/27/17 at 00:15 Fentanyl Citrate (Fentanyl 2ml Vial) 50 mcg PRN Q2HR PRN IV SEVERE PAIN; Start 08/27/17 at 08:45; Stop 08/28/17 at 08:44; Status DC Ondansetron HCl (Zofran) 4 mg PRN Q6HRS PRN IV NAUSEA/VOMITING; Start at 08:45; Stop 08/28/17 at 08:44; Status DC Multivitamins 10 ml/Thiamine HCl 100 mg/Folic Acid 1 mg/Dextrose/ Sodium Chloride 1,011.2 ml @ 100.02 mls/hr DAILY IV Last administered on 08/27/17 10:08; Start 08/27/17 at 09:00; Stop 08/28/17 at 08:59; Status DC Sodium Chloride 1,000 ml @ 100 mls/hr Q10H IV Last administered on 08/28/17 08:14; Start 08/27/17 at 08:30 Oxycodone/ Acetaminophen (Percocet 5/325) 1 tab PRN Q4HRS PRN PO PAIN Last administered on 08/28/17 02:46; Start 08/27/17 at 08:30 Oxycodone/ Acetaminophen (Percocet 10/325) 1 tab PRN Q4HRS PRN PO pain Last administered on 08/28/17 08:16; Start 08/27/17 at 08:30 Acetaminophen (Tylenol) 650 mg PRN Q6HRS PRN PO pain; Start 08/27/17 at 08:30 Ciprofloxacin (Cipro) 500 mg BID PO Last administered on 08/28/17 08:16; Start 08/27/17 at 14:10 Lactobacillus Rhamnosus (Culturelle) 1 cap BID PO Last administered on 08:15; Start 08/27/17 at 21:00 Vancomycin HCl 1 gm/Dextrose 250 ml @ 250 mls/hr Q12H IV ; Start 08/28/17 at 09:00 Vancomycin HCl 1 each 1X ONCE MC ; Start 08/29/17 at 08:30; Stop 08/29/17 at 08:31 Multivitamins (Thera M Plus) 1 tab DAILY PO Last administered on 08/28/17 08: 15; Start 08/28/17 at 09:00 Folic Acid (Folic Acid) 1 mg DAILY PO Last administered on 08/28/17 08:15; Start 08/28/17 at 09:00 Thiamine Mononitrate (Vitamin B-1) 100 mg DAILY PO Last administered on 08:16; Start 08/28/17 at 09:00 Active Scripts Active No Active Prescriptions or Reported Medications Vitals/I & O Vital Sign - Last 24 Hours 08/27/17 08/27/17 08/27/17 08/27/17 11:00 15:06 19:00 19:48 Temp 97.3 98.2 97.7 97.3 98.2 97.7 Pulse 80 71 75 Resp 22 20 18 18 B/P (MAP) 121/78 (92) 125/82 (96) 115/87 (96) Pulse Ox 97 97 99 97 O2 Delivery Room Air Room Air Room Air Room Air 08/27/17 08/27/17 08/27/17 08/28/17 20:00 20:49 23:00 02:45 Temp 97.7 97.5 97.7 97.5 Pulse 75 69 Resp 18 18 B/P (MAP) 133/76 (95) 128/82 (97) Pulse Ox 97 99 100 O2 Delivery Room Air Room Air Room Air Room Air 08/28/17 08/28/17 08/28/17 08/28/17 02:46 03:50 07:00 08:16 Temp 97.5 97.5 Pulse 66 Resp 18 16 B/P (MAP) 128/82 (97) Pulse Ox 100 100 100 100 O2 Delivery Room Air Room Air Room Air Room Air Intake and Output 08/27/17 08/27/17 08/28/17 15:00 23:00 07:00 Intake Total 750 ml 1400 ml Output Total 950 ml 1400 ml Balance -200 ml 0 ml GARRICK AYALA MD Aug 28, 2017 10:34
[2017-08-28 10:47] VITALS: BP 119/76
[2017-08-28] MEDS: cefTRIAXone IV Push 1 GM VIAL. IVP SCH ×2 (12:46→20:17)
[2017-08-28 15:00] VITALS: BP 130/81
[2017-08-28 18:01] LABS: BASO % 1 % (0-3); EOS % 3 % (0-3); HEMOGLOBIN 10.8 g/dL (13.0-17.5); LYMPH # 1.1 x10^3/uL (1.0-4.8); LYMPH % 23 % (24-48); MEAN CORPUSCULAR HEMOGLOBIN 33 pg (25-35); MEAN CORPUSCULAR HGB CONC 33 g/dL (31-37); MEAN CORPUSCULAR VOLUME 102 fL (79-100); MONO % 18 % (0-9); NEUT % 56 % (31-73); PLATELET COUNT 273 x10^3/uL (140-400); RED BLOOD COUNT 3.24 x10^6/uL (4.30-5.70); RED CELL DISTRIBUTION WIDTH 12.4 % (11.5-14.5); WHITE BLOOD COUNT 4.9 x10^3/uL (4.0-11.0)
[2017-08-28 19:00] VITALS: BP 141/85
[2017-08-28] MEDS: MUPIROCIN 2 % NASAL OINTMENT 22GM TUBE. NS SCH (20:15)
[2017-08-28 23:00] VITALS: BP 136/88
[2017-08-29] MEDS: oxyCODONE/APAP 10/325 1 TAB TABLET PO PRN ×4 (00:20→21:03)
[2017-08-29 03:54] VITALS: BP 141/85
[2017-08-29 07:00] VITALS: BP 146/90
[2017-08-29] MEDS: LACTOBACILLUS RHAMNOSUS GG 1 CAPSULE. PO SCH ×2 (08:44→21:02)
[2017-08-29] MEDS: FOLIC ACID 1 MG TABLET. PO SCH (08:44)
[2017-08-29] MEDS: MULTIVITAMIN with MINERAL TABLET. PO SCH (08:45)
[2017-08-29] MEDS: THIAMINE 100 MG TABLET. PO SCH (08:45)
[2017-08-29 08:49] LABS: CALCIUM 8.9 mg/dL (8.5-10.1); CREATININE 1.1 mg/dL (0.7-1.3); GFR 88.4; POTASSIUM 4.3 mmol/L (3.5-5.1)
[2017-08-29 08:50] LABS: BASO % 1 % (0-3); EOS % 3 % (0-3); HEMATOCRIT 30.7 % (39.0-53.0); HEMOGLOBIN 10.5 g/dL (13.0-17.5); LYMPH # 1.3 x10^3/uL (1.0-4.8); LYMPH % 24 % (24-48); MEAN CORPUSCULAR HEMOGLOBIN 34 pg (25-35); MEAN CORPUSCULAR HGB CONC 34 g/dL (31-37); MEAN CORPUSCULAR VOLUME 101 fL (79-100); MONO % 16 % (0-9); NEUT % 57 % (31-73); PLATELET COUNT 269 x10^3/uL (140-400); RED BLOOD COUNT 3.05 x10^6/uL (4.30-5.70); RED CELL DISTRIBUTION WIDTH 12.4 % (11.5-14.5); WHITE BLOOD COUNT 5.5 x10^3/uL (4.0-11.0)
[2017-08-29] MEDS: cefTRIAXone IV Push 1 GM VIAL. IVP SCH ×2 (08:52→21:00)
--- NOTE | 2017-08-29 10:06 | PDOC ---
PROGRESS NOTES Chief Complaint Chief Complaint 1. multiple small wounds, skin lesions were open, wet to bilateral feet, lesions are small, < 1 cm each, - Open round lesions, weeping bilateral dorsum feet and suprapubic area 2. SIRS poa,possible sepsis, no organ dysfcn 3, NO UTI 4. MIld to mod PCM on admit 5. ETOH drinker, THC use, 6,. 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 Vitals Vitals Vital Signs Date Time Temp Pulse Resp B/P (MAP) Pulse Ox O2 Delivery O2 Flow Rate FiO2 08/29/17 08:45 99 Room Air 08/29/17 07:00 97.9 81 20 146/90 (108) 97.9 Physical Exam General: Alert, Oriented X3, Cooperative, No acute distress Heart: Regular rate Lungs: Clear, Wheezing Abdomen: Normal bowel sounds, Soft, No tenderness, No hepatosplenomegaly, No masses Extremities: Other (similar lesions on both dorsal side of feet) Skin: No rashes Labs LABS Laboratory Tests Test 08/28/17 17:40 08/29/17 08:30 White Blood Count 4.9 x10^3/uL (4.0-11.0) 5.5 x10^3/uL (4.0-11.0) Red Blood Count 3.24 x10^6/uL (4.30-5.70) 3.05 x10^6/uL (4.30-5.70) Hemoglobin 10.8 g/dL (13.0-17.5) 10.5 g/dL (13.0-17.5) Hematocrit 33.0 % (39.0-53.0) 30.7 % (39.0-53.0) Mean Corpuscular Volume 102 fL (79-100) 101 fL (79-100) Mean Corpuscular Hemoglobin 33 pg (25-35) 34 pg (25-35) Mean Corpuscular Hemoglobin Concent 33 g/dL (31-37) 34 g/dL (31-37) Red Cell Distribution Width 12.4 % (11.5-14.5) 12.4 % (11.5-14.5) Platelet Count 273 x10^3/uL (140-400) 269 x10^3/uL (140-400) Neutrophils (%) (Auto) 56 % (31-73) 57 % (31-73) Lymphocytes (%) (Auto) 23 % (24-48) 24 % (24-48) Monocytes (%) (Auto) 18 % (0-9) 16 % (0-9) Eosinophils (%) (Auto) 3 % (0-3) 3 % (0-3) Basophils (%) (Auto) 1 % (0-3) 1 % (0-3) Neutrophils # (Auto) 2.7 x10^3uL (1.8-7.7) 3.1 x10^3uL (1.8-7.7) Lymphocytes # (Auto) 1.1 x10^3/uL (1.0-4.8) 1.3 x10^3/uL (1.0-4.8) Monocytes # (Auto) 0.9 x10^3/uL (0.0-1.1) 0.9 x10^3/uL (0.0-1.1) Eosinophils # (Auto) 0.2 x10^3/uL (0.0-0.7) 0.1 x10^3/uL (0.0-0.7) Basophils # (Auto) 0.0 x10^3/uL (0.0-0.2) 0.0 x10^3/uL (0.0-0.2) Erythrocyte Sedimentation Rate 86 (0-15) C-Reactive Protein, Quantitative 39.8 mg/L (0-3.3) Sodium Level 141 mmol/L (136-145) Potassium Level 4.3 mmol/L (3.5-5.1) Chloride Level 107 mmol/L (98-107) Carbon Dioxide Level 29 mmol/L (21-32) Anion Gap 5 (6-14) Blood Urea Nitrogen 12 mg/dL (8-26) Creatinine 1.1 mg/dL (0.7-1.3) Estimated GFR (Cockcroft-Gault) 88.4 Glucose Level 98 mg/dL (70-99) Calcium Level 8.9 mg/dL (8.5-10.1) Review of Systems Review of Systems no n.v.d Assessment and Plan Assessmemt and Plan Problems Medical Problems: (1) Foot ulceration Status: Acute Problems: Comment Review of Relevant I have reviewed the following items rolando (where applicable) has been applied. Labs Laboratory Tests Test 08/27/17 19:20 08/28/17 04:40 08/28/17 17:40 08/29/17 08:30 Vancomycin Level Trough 36.5 mcg/mL (10.0-20.0) Vancomycin Last Dose Date 08/27/17 Vancomycin Last Dose Time 1200 White Blood Count 6.8 x10^3/uL (4.0-11.0) 4.9 x10^3/uL (4.0-11.0) 5.5 x10^3/uL (4.0-11.0) Red Blood Count 3.32 x10^6/uL (4.30-5.70) 3.24 x10^6/uL (4.30-5.70) 3.05 x10^6/uL (4.30-5.70) Hemoglobin 11.3 g/dL (13.0-17.5) 10.8 g/dL (13.0-17.5) 10.5 g/dL (13.0-17.5) Hematocrit 33.5 % (39.0-53.0) 33.0 % (39.0-53.0) 30.7 % (39.0-53.0) Mean Corpuscular Volume 101 fL (79-100) 102 fL (79-100) 101 fL (79-100) Mean Corpuscular Hemoglobin 34 pg (25-35) 33 pg (25-35) 34 pg (25-35) Mean Corpuscular Hemoglobin Concent 34 g/dL (31-37) 33 g/dL (31-37) 34 g/dL (31-37) Red Cell Distribution Width 12.5 % (11.5-14.5) 12.4 % (11.5-14.5) 12.4 % (11.5-14.5) Platelet Count 280 x10^3/uL (140-400) 273 x10^3/uL (140-400) 269 x10^3/uL (140-400) Neutrophils (%) (Auto) 59 % (31-73) 56 % (31-73) 57 % (31-73) Lymphocytes (%) (Auto) 17 % (24-48) 23 % (24-48) 24 % (24-48) Monocytes (%) (Auto) 20 % (0-9) 18 % (0-9) 16 % (0-9) Eosinophils (%) (Auto) 2 % (0-3) 3 % (0-3) 3 % (0-3) Basophils (%) (Auto) 1 % (0-3) 1 % (0-3) 1 % (0-3) Neutrophils # (Auto) 4.1 x10^3uL (1.8-7.7) 2.7 x10^3uL (1.8-7.7) 3.1 x10^3uL (1.8-7.7) Lymphocytes # (Auto) 1.2 x10^3/uL (1.0-4.8) 1.1 x10^3/uL (1.0-4.8) 1.3 x10^3/uL (1.0-4.8) Monocytes # (Auto) 1.4 x10^3/uL (0.0-1.1) 0.9 x10^3/uL (0.0-1.1) 0.9 x10^3/uL (0.0-1.1) Eosinophils # (Auto) 0.2 x10^3/uL (0.0-0.7) 0.2 x10^3/uL (0.0-0.7) 0.1 x10^3/uL (0.0-0.7) Basophils # (Auto) 0.1 x10^3/uL (0.0-0.2) 0.0 x10^3/uL (0.0-0.2) 0.0 x10^3/uL (0.0-0.2) Segmented Neutrophils % 56 % (35-66) Band Neutrophils % 8 % (0-9) Lymphocytes % 14 % (24-48) Monocytes % 20 % (0-10) Eosinophils % 1 % (0-5) Basophils % 1 % (0-3) Platelet Estimate Adequate (ADEQUATE) Sodium Level 138 mmol/L (136-145) 141 mmol/L (136-145) Potassium Level 4.6 mmol/L (3.5-5.1) 4.3 mmol/L (3.5-5.1) Chloride Level 102 mmol/L (98-107) 107 mmol/L (98-107) Carbon Dioxide Level 30 mmol/L (21-32) 29 mmol/L (21-32) Anion Gap 6 (6-14) 5 (6-14) Blood Urea Nitrogen 20 mg/dL (8-26) 12 mg/dL (8-26) Creatinine 1.4 mg/dL (0.7-1.3) 1.1 mg/dL (0.7-1.3) Estimated GFR (Cockcroft-Gault) 66.9 88.4 BUN/Creatinine Ratio 14 (6-20) Glucose Level 60 mg/dL (70-99) 98 mg/dL (70-99) Calcium Level 9.1 mg/dL (8.5-10.1) 8.9 mg/dL (8.5-10.1) Total Bilirubin 0.2 mg/dL (0.2-1.0) Aspartate Amino Transf (AST/SGOT) 14 U/L (15-37) Alanine Aminotransferase (ALT/SGPT) 11 U/L (16-63) Alkaline Phosphatase 122 U/L (46-116) Total Protein 8.0 g/dL (6.4-8.2) Albumin 2.5 g/dL (3.4-5.0) Albumin/Globulin Ratio 0.5 (1.0-1.7) Erythrocyte Sedimentation Rate 86 (0-15) C-Reactive Protein, Quantitative 39.8 mg/L (0-3.3) Laboratory Tests Test 08/28/17 17:40 08/29/17 08:30 White Blood Count 4.9 x10^3/uL (4.0-11.0) 5.5 x10^3/uL (4.0-11.0) Red Blood Count 3.24 x10^6/uL (4.30-5.70) 3.05 x10^6/uL (4.30-5.70) Hemoglobin 10.8 g/dL (13.0-17.5) 10.5 g/dL (13.0-17.5) Hematocrit 33.0 % (39.0-53.0) 30.7 % (39.0-53.0) Mean Corpuscular Volume 102 fL (79-100) 101 fL (79-100) Mean Corpuscular Hemoglobin 33 pg (25-35) 34 pg (25-35) Mean Corpuscular Hemoglobin Concent 33 g/dL (31-37) 34 g/dL (31-37) Red Cell Distribution Width 12.4 % (11.5-14.5) 12.4 % (11.5-14.5) Platelet Count 273 x10^3/uL (140-400) 269 x10^3/uL (140-400) Neutrophils (%) (Auto) 56 % (31-73) 57 % (31-73) Lymphocytes (%) (Auto) 23 % (24-48) 24 % (24-48) Monocytes (%) (Auto) 18 % (0-9) 16 % (0-9) Eosinophils (%) (Auto) 3 % (0-3) 3 % (0-3) Basophils (%) (Auto) 1 % (0-3) 1 % (0-3) Neutrophils # (Auto) 2.7 x10^3uL (1.8-7.7) 3.1 x10^3uL (1.8-7.7) Lymphocytes # (Auto) 1.1 x10^3/uL (1.0-4.8) 1.3 x10^3/uL (1.0-4.8) Monocytes # (Auto) 0.9 x10^3/uL (0.0-1.1) 0.9 x10^3/uL (0.0-1.1) Eosinophils # (Auto) 0.2 x10^3/uL (0.0-0.7) 0.1 x10^3/uL (0.0-0.7) Basophils # (Auto) 0.0 x10^3/uL (0.0-0.2) 0.0 x10^3/uL (0.0-0.2) Erythrocyte Sedimentation Rate 86 (0-15) C-Reactive Protein, Quantitative 39.8 mg/L (0-3.3) Sodium Level 141 mmol/L (136-145) Potassium Level 4.3 mmol/L (3.5-5.1) Chloride Level 107 mmol/L (98-107) Carbon Dioxide Level 29 mmol/L (21-32) Anion Gap 5 (6-14) Blood Urea Nitrogen 12 mg/dL (8-26) Creatinine 1.1 mg/dL (0.7-1.3) Estimated GFR (Cockcroft-Gault) 88.4 Glucose Level 98 mg/dL (70-99) Calcium Level 8.9 mg/dL (8.5-10.1) Microbiology 08/26/17 Blood Culture - Preliminary, Resulted NO GROWTH AFTER 2 DAYS 08/26/17 Urine Culture - Preliminary, Resulted 08/26/17 Urine Culture Result 1 (HEMANTH) - Preliminary, Resulted Medications Current Medications Sodium Chloride 1,000 ml @ 1,000 mls/hr 1X ONCE IV Last administered on 08/26 17:41; Start 08/26/17 at 17:30; Stop 08/26/17 at 18:29; Status DC Fentanyl Citrate (Fentanyl 2ml Vial) 25 mcg PRN Q15MIN PRN IV PAIN GREATER THAN 3/10 Last administered on 08/26/17 17:41; Start 08/26/17 at 17:15; Stop 08/27/17 at 08:41; Status DC Vancomycin HCl (Vanco Per Pharmacy) 1 each PRN DAILY PRN MC SEE COMMENTS Last administered on 08/27/17 20:29; Start 08/26/17 at 20:00; Stop 08/28/17 at 10 :33; Status DC Vancomycin HCl 2 gm/Dextrose 500 ml @ 250 mls/hr 1X ONCE IV Last administered on 08/26/17 20:13; Start 08/26/17 at 20:30; Stop 08/26/17 at 22 :29; Status DC Vancomycin HCl 1.25 gm/Dextrose 250 ml @ 167 mls/hr Q8H IV Last administered on 08/27/17 11:25; Start 08/27/17 at 04:00; Stop 08/27/17 at 20:16; Status DC Vancomycin HCl 1 each 1X ONCE MC Last administered on 11/25/17at 19:30; Start 08/27/17 at 19:30; Stop 08/27/17 at 19:31; Status DC Ondansetron HCl (Zofran) 4 mg PRN Q8HRS PRN IV NAUSEA/VOMITING; Start at 21:30; Stop 08/27/17 at 08:32; Status DC Fentanyl Citrate (Fentanyl 2ml Vial) 50 mcg PRN Q1HR PRN IV SEVERE PAIN Last administered on 08/27/17 08:10; Start 08/26/17 at 21:30; Stop 08/27/17 at 08 :32; Status DC Acetaminophen (Tylenol) 650 mg PRN Q4HRS PRN PO FEVER; Start 08/26/17 at 21:30 ; Stop 08/27/17 at 08:41; Status DC Multivitamins (Thera M Plus) 1 tab DAILY PO Last administered on 08/27/17 08: 10; Start 08/27/17 at 09:00; Stop 08/27/17 at 09:00; Status DC Chlordiazepoxide (Librium) 25 mg Q6H PO Last administered on 08/28/17 03:09; Start 08/26/17 at 22:00; Stop 08/28/17 at 04:01; Status DC Zolpidem Tartrate (Ambien) 5 mg PRN QHS PRN PO INSOMNIA, MAY REPEAT IN 1HR; Start 08/27/17 at 00:15 Fentanyl Citrate (Fentanyl 2ml Vial) 50 mcg PRN Q2HR PRN IV SEVERE PAIN; Start 08/27/17 at 08:45; Stop 08/28/17 at 08:44; Status DC Ondansetron HCl (Zofran) 4 mg PRN Q6HRS PRN IV NAUSEA/VOMITING; Start at 08:45; Stop 08/28/17 at 08:44; Status DC Multivitamins 10 ml/Thiamine HCl 100 mg/Folic Acid 1 mg/Dextrose/ Sodium Chloride 1,011.2 ml @ 100.02 mls/hr DAILY IV Last administered on 08/27/17 10:08; Start 08/27/17 at 09:00; Stop 08/28/17 at 08:59; Status DC Sodium Chloride 1,000 ml @ 100 mls/hr Q10H IV Last administered on 08/28/17 22:26; Start 08/27/17 at 08:30 Oxycodone/ Acetaminophen (Percocet 5/325) 1 tab PRN Q4HRS PRN PO PAIN Last administered on 08/28/17 02:46; Start 08/27/17 at 08:30 Oxycodone/ Acetaminophen (Percocet 10/325) 1 tab PRN Q4HRS PRN PO pain Last administered on 08/29/17 08:45; Start 08/27/17 at 08:30 Acetaminophen (Tylenol) 650 mg PRN Q6HRS PRN PO pain; Start 08/27/17 at 08:30 Ciprofloxacin (Cipro) 500 mg BID PO Last administered on 08/28/17 08:16; Start 08/27/17 at 14:10; Stop 08/28/17 at 10:32; Status DC Lactobacillus Rhamnosus (Culturelle) 1 cap BID PO Last administered on 08:44; Start 08/27/17 at 21:00 Vancomycin HCl 1 gm/Dextrose 250 ml @ 250 mls/hr Q12H IV Last administered on 08/28/17 09:00; Start 08/28/17 at 09:00; Stop 08/28/17 at 10:33; Status DC Vancomycin HCl 1 each 1X ONCE MC ; Start 08/29/17 at 08:30; Stop 08/29/17 at 08:30; Status DC Multivitamins (Thera M Plus) 1 tab DAILY PO Last administered on 08/29/17 08: 45; Start 08/28/17 at 09:00 Folic Acid (Folic Acid) 1 mg DAILY PO Last administered on 08/29/17 08:44; Start 08/28/17 at 09:00 Thiamine Mononitrate (Vitamin B-1) 100 mg DAILY PO Last administered on 08:45; Start 08/28/17 at 09:00 Ceftriaxone Sodium 1 gm/ Dextrose 50 ml @ 100 mls/hr BID IV ; Start 08/28/17 at 21:00; Status UNV Ceftriaxone Sodium (Rocephin) 1 gm Q12HR IVP Last administered on 08/29/17 08 :52; Start 08/28/17 at 11:00 Mupirocin (Bactroban) 1 tien QODAY NS Last administered on 08/28/17t 20:15; Start 08/28/17 at 21:00 Active Scripts Active No Active Prescriptions or Reported Medications Vitals/I & O Vital Sign - Last 24 Hours 08/28/17 08/28/17 08/28/17 08/28/17 10:47 12:46 13:46 15:00 Temp 97.5 97.7 97.5 97.7 Pulse 65 76 Resp 16 16 16 16 B/P (MAP) 119/76 (90) 130/81 (97) Pulse Ox 100 100 100 O2 Delivery Room Air Room Air Room Air 08/28/17 08/28/17 08/28/17 08/28/17 19:00 19:19 20:00 23:00 Temp 97.9 98.1 97.9 98.1 Pulse 74 73 Resp 18 18 B/P (MAP) 141/85 (103) 136/88 (104) Pulse Ox 100 100 100 O2 Delivery Room Air Room Air Room Air Room Air 08/29/17 08/29/17 08/29/17 08/29/17 00:20 01:23 03:54 07:00 Temp 98.7 97.9 98.7 97.9 Pulse 66 81 Resp 18 20 B/P (MAP) 141/85 (103) 146/90 (108) Pulse Ox 100 100 100 99 O2 Delivery Room Air Room Air Room Air Room Air 08/29/17 08:45 Pulse Ox 99 O2 Delivery Room Air Intake and Output 08/28/17 08/28/17 08/29/17 15:00 23:00 07:00 Intake Total 540 ml 720 ml Output Total 1000 ml 1050 ml Balance -460 ml -330 ml HERNÁN PHAN MD Aug 29, 2017 10:06
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
[2017-08-29 11:00] VITALS: BP 141/84
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
[2017-08-29] MEDS ORDERED: IVERMECTIN 3 MG TABLET PO ONE (12:00)
[2017-08-29 15:00] VITALS: BP 154/91
[2017-08-29] MEDS: DOXYCYCLINE HYCLATE 100 MG TABLET PO SCH ×2 (16:31→21:02)
[2017-08-29] MEDS: IV NORMAL SALINE 1000ML BAG 1,000 ML IV SCH ×2 (16:31→20:30)
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
[2017-08-29 19:00] VITALS: BP 155/104
[2017-08-29] MEDS: TRIAMCINOLONE ACETONIDE 0.1% TOPICAL CREAM 15GM TUBE. TP SCH (21:03)
[2017-08-29] MEDS: MUPIROCIN 2 % NASAL OINTMENT 22GM TUBE. NS SCH (21:04)
[2017-08-29 23:00] VITALS: BP 166/106
[2017-08-30 01:14] LABS: HIV ANTIBODY Non Reactive (Non Reactive)
[2017-08-30 03:00] VITALS: BP 152/103
[2017-08-30 05:00] VITALS: BP 152/103
[2017-08-30 07:20] VITALS: BP 169/96
[2017-08-30] MEDS: oxyCODONE/APAP 10/325 1 TAB TABLET PO PRN ×2 (08:10→15:23)
[2017-08-30] MEDS: MULTIVITAMIN with MINERAL TABLET. PO SCH (09:35)
[2017-08-30] MEDS: IV NORMAL SALINE 1000ML BAG 1,000 ML IV SCH (09:35)
[2017-08-30] MEDS: DOXYCYCLINE HYCLATE 100 MG TABLET PO SCH (09:35)
[2017-08-30] MEDS: LACTOBACILLUS RHAMNOSUS GG 1 CAPSULE. PO SCH (09:35)
[2017-08-30] MEDS: THIAMINE 100 MG TABLET. PO SCH (09:35)
[2017-08-30] MEDS: FOLIC ACID 1 MG TABLET. PO SCH (09:35)
[2017-08-30] MEDS: TRIAMCINOLONE ACETONIDE 0.1% TOPICAL CREAM 15GM TUBE. TP SCH (09:36)
[2017-08-30] MEDS: cefTRIAXone IV Push 1 GM VIAL. IVP SCH (09:36)
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
[2017-08-30] MEDS ORDERED: TRIA15CR3 TP (10:07)
[2017-08-30] MEDS ORDERED: OXYC1TAB7 PO (10:07)
[2017-08-30] MEDS ORDERED: DOXY100T PO (10:07)
--- NOTE | 2017-08-30 10:13 | PDOC3 ---
Discharge Summary Visit Information Date of Admission: Aug 26, 2017 Date of Discharge: Aug 30, 2017 Admitting Diagnosis: cellulitis Final Diagnosis 1. multiple small wounds, skin lesions were open, wet to bilateral feet, lesions are small, < 1 cm each, - Open round lesions, weeping bilateral dorsum feet and suprapubic area 2. SIRS poa,possible sepsis, no organ dysfcn 3, NO UTI 4. MIld to mod PCM on admit 5. ETOH drinker, THC use, 6,. 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 poor dentition and poor hygiene, Problems Medical Problems: (1) Foot ulceration Status: Acute Brief Hospital Course Allergies Allergies Coded Allergies Type Severity Reaction Last Updated Verified Iodinated Contrast- Oral and IV Dye Allergy Intermediate 04/21/17 Yes Vital Signs Vital Signs Date Time Temp Pulse Resp B/P (MAP) Pulse Ox O2 Delivery O2 Flow Rate FiO2 08/30/17 09:36 99 Room Air 08/30/17 07:20 97.8 73 18 169/96 (120) 97.8 Lab Results Laboratory Tests Test 08/28/17 17:40 08/29/17 08:30 White Blood Count 4.9 x10^3/uL (4.0-11.0) 5.5 x10^3/uL (4.0-11.0) Red Blood Count 3.24 x10^6/uL (4.30-5.70) 3.05 x10^6/uL (4.30-5.70) Hemoglobin 10.8 g/dL (13.0-17.5) 10.5 g/dL (13.0-17.5) Hematocrit 33.0 % (39.0-53.0) 30.7 % (39.0-53.0) Mean Corpuscular Volume 102 fL (79-100) 101 fL (79-100) Mean Corpuscular Hemoglobin 33 pg (25-35) 34 pg (25-35) Mean Corpuscular Hemoglobin Concent 33 g/dL (31-37) 34 g/dL (31-37) Red Cell Distribution Width 12.4 % (11.5-14.5) 12.4 % (11.5-14.5) Platelet Count 273 x10^3/uL (140-400) 269 x10^3/uL (140-400) Neutrophils (%) (Auto) 56 % (31-73) 57 % (31-73) Lymphocytes (%) (Auto) 23 % (24-48) 24 % (24-48) Monocytes (%) (Auto) 18 % (0-9) 16 % (0-9) Eosinophils (%) (Auto) 3 % (0-3) 3 % (0-3) Basophils (%) (Auto) 1 % (0-3) 1 % (0-3) Neutrophils # (Auto) 2.7 x10^3uL (1.8-7.7) 3.1 x10^3uL (1.8-7.7) Lymphocytes # (Auto) 1.1 x10^3/uL (1.0-4.8) 1.3 x10^3/uL (1.0-4.8) Monocytes # (Auto) 0.9 x10^3/uL (0.0-1.1) 0.9 x10^3/uL (0.0-1.1) Eosinophils # (Auto) 0.2 x10^3/uL (0.0-0.7) 0.1 x10^3/uL (0.0-0.7) Basophils # (Auto) 0.0 x10^3/uL (0.0-0.2) 0.0 x10^3/uL (0.0-0.2) Erythrocyte Sedimentation Rate 86 (0-15) C-Reactive Protein, Quantitative 39.8 mg/L (0-3.3) Sodium Level 141 mmol/L (136-145) Potassium Level 4.3 mmol/L (3.5-5.1) Chloride Level 107 mmol/L (98-107) Carbon Dioxide Level 29 mmol/L (21-32) Anion Gap 5 (6-14) Blood Urea Nitrogen 12 mg/dL (8-26) Creatinine 1.1 mg/dL (0.7-1.3) Estimated GFR (Cockcroft-Gault) 88.4 Glucose Level 98 mg/dL (70-99) Calcium Level 8.9 mg/dL (8.5-10.1) Brief Hospital Course Mr. Jurado is a 42 old male, admit with fungating and wet foot lesions, mult small < 1 cm lesions weeping on admit, open ulcers that dried over days, wound care with wet to dry, lesions almost resolved he had used wet and poorly fitting work boots, DC on 10 days doxy ID and derm consulted, HIV and RPR neg, hepatitis pending Discharge Information Condition at Discharge: Improved Follow Up: Weeks Disposition/Orders: D/C to Home Scheduled Doxycycline Hyclate (Doxycycline Hyclate), 100 MG PO BID Triamcinolone Acetonide (Triamcinolone Acetonide 0.1% Cream), 1 ATA TP BID Scheduled PRN Oxycodone Hcl/Acetaminophen (Oxycodone-Acetaminophen 5-325), 1 TAB PO PRN Q4HRS PRN for PAIN Patient Instructions Patient Instructions > 30 min face to face HERNÁN PHAN MD Aug 30, 2017 10:13
[2017-08-30 10:51] VITALS: BP 145/84
[2017-08-30 14:32] VITALS: BP 140/80
[2017-08-31 07:35] LABS: HEP B SURFACE ABDY Non Reactive (.)
[2017-09-05 12:12] LABS: HLA B27 RESULT Negative (.)
[2017-09-12] MEDS ORDERED: IVERMECTIN 3 MG TABLET PO ONE (09:00)
== END 2017-08-30 15:45 | disposition home or self-care (01) | DRG 872 ==
LOC: ER 15:45 → 6 SOUTH 19:52
PROVIDERS: ADMIT Internal Medicine; ATTEND Internal Medicine
DX: A41.9 Sepsis, unspecified organism (principal); N17.9 Acute kidney failure, unspecified; E44.0 Moderate protein-calorie malnutrition; L03.115 Cellulitis of right lower limb; L03.116 Cellulitis of left lower limb; L97.509 Non-pressure chronic ulcer of other part of unspecified foot with unspecified severity; F10.10 Alcohol abuse, uncomplicated; F12.90 Cannabis use, unspecified, uncomplicated; I10 Essential (primary) hypertension; J45.909 Unspecified asthma, uncomplicated; L23.9 Allergic contact dermatitis, unspecified cause; K00.7 Teething syndrome; L84 Corns and callosities; Z96.652 Presence of left artificial knee joint; Z59.0 Homelessness; Z82.49 Family history of ischemic heart disease and other diseases of the circulatory system; Z87.891 Personal history of nicotine dependence; Z91.041 Radiographic dye allergy status; T36.8X5A Adverse effect of other systemic antibiotics, initial encounter
CPT/HCPCS: 36415; 71010; 73630; 80048; 80053; 80202; 80307; 81001; 83605; 83735; 85007; 85025; 85651; 86140; 86593; 86701; 86702; 86703; 86706; 86803; 86812; 87040; 87086; 87101; 87491; 87535; 87591; 93005; 96361; 96365; 96375; G0480; J0696; J3010; J3370; J7030; 99285-25; G0479

== ENCOUNTER 2017-11-06 01:19 | Emergency (ER) | payer SELFPAY | END 2017-11-06 02:00 | disposition home or self-care (01) | LOC: ER 01:19 | DX: R05 Cough (principal); R07.89 Other chest pain; R06.02 Shortness of breath; F10.20 Alcohol dependence, uncomplicated; F12.10 Cannabis abuse, uncomplicated; F17.200 Nicotine dependence, unspecified, uncomplicated; Z91.041 Radiographic dye allergy status | CPT/HCPCS: 71046; 99284-25 ==